=== PATIENT | female | born 1945 | race Caucasian/White ===

== ENCOUNTER → 2017-01-21 | Outpatient (CLI) | payer BC ==
[2017-01-21 14:35] LABS: ALT/SGPT 40 U/L (12-78); BLOOD UREA NITROGEN 14 mg/dl (7-18); BUN/CREATININE RATIO 23.1 (10-20); CALCIUM 9.2 mg/dl (8.5-10.1); CARBON DIOXIDE 28 mmol/L (21-32); CHLORIDE 102 mmol/L (98-107); CREATININE 0.62 mg/dl (0.60-1.20); GLUCOSE 131 mg/dl (70-99); SODIUM 138 mmol/L (136-145)
[2017-01-21 14:44] LABS: ESTIMATED AVERAGE GLUCOSE 123 mg/dl; HA1C FLAG Normal (Normal)
[2017-01-21 14:46] LABS: ALKALINE PHOSPHATASE 127 U/L (45-117); AST/SGOT 26 U/L (15-37); FERRITIN 27.4 ng/ml (8.0-388.0)
[2017-01-21 15:23] LABS: LYME DISEASE AB IGG NEG (NEG); LYME DISEASE AB IGM NEG (NEG)
== END | disposition home or self-care (01) ==
LOC: C.LAB 13:41
PROVIDERS: ATTEND Chiropractor
DX: M79.1 Myalgia (principal)

== ENCOUNTER → 2017-02-17 | Outpatient (CLI) | payer BC ==
[~2017-02-17] MED LIST: B-COTAB18 PO; CHOL20007 PO; HYDR-5688 PO; LEVO88TA3 PO; LVNIS40 SQ; MULT-506 PO; RASA1TAB PO; ULT50X PO; [UNRECOGNIZED DRUG - OTHER] PO
== END | disposition home or self-care (01) ==
LOC: C.LAB 11:34
PROVIDERS: ATTEND Chiropractor
DX: M79.1 Myalgia (principal)

== ENCOUNTER → 2017-05-05 | Day surgery (SDC) | payer OTHER ==
[2017-04-21 09:01] VITALS: Ht 163.8 cm; Wt 59.1 kg
[~2017-05-05] VITALS: Ht 163.8 cm; Wt 59.1 kg
[~2017-05-05] MED LIST changes: +500ML BSS 0.3ML EPI 1:1000PF IRRIG ONE; +ACETAMINOPHEN 325 MG TAB PO PRN; +AMVISC PLUS 0.8ML SYRINGE INT OCU ONE; +ATROPINE SULFATE 0.1 MG/ML 5ML SYR IV PRN; +BSS FLUSH ONE; +ENDOCOAT 0.85ML SYRINGE INT OCU ONE; +EpHEDrine SULFATE INJ 50 MG/ML AMP IV PRN; +EpINEphrine INJ 1MG/ML AMP 1 MG/ML AMP ONE; -HYDR-5688 PO; +LACTATED RINGER'S 1000ML 1,000 ML IV SCH; +LIDOCAINE 4% OP SOLN DROP CHARGE ONE; +LIDOCAINE 4% OP SOLN DROP CHARGE OPL SCH; +LIDOCAINE HCL 1% MPF 2 ML VIAL ONE; -LVNIS40 SQ; +MIDAZOLAM HCL 1 MG/ML 2ML VIAL ONE; +MIX: 4ML BSS 1ML EPI 1:1000 PF TOP ONE; +MOXIFLOXACIN OPH SOLN PER DROP CHARGE ONE; +NURSING VERBAL MED ORDER ONE; +PROPARACAINE 0.5% OP SOLN PER DROP CHARGE OPL SCH; +TOBRAMYCIN/DEXAMETHASONE OPH OINT PER APPLN CHARGE ONE; -ULT50X PO
[2017-05-05] MEDS: PHENYLEPHRINE HCL 2.5% OP SOLN PER DROP CHARGE OPL SCH ×3 (09:07→09:17)
[2017-05-05] MEDS: TROPICAMIDE 1% OP SOLN PER DROP CHARGE OPL SCH ×3 (09:08→09:18)
[2017-05-05] MEDS: CYCLOPENTOLATE HCL 1% OP SOLN PER DROP CHARGE OPL SCH ×3 (09:09→09:19)
[2017-05-05] MEDS: MOXIFLOXACIN OPH SOLN PER DROP CHARGE OPL SCH ×3 (09:10→09:20)
--- NOTE | 2017-05-05 09:24 | History & Physical Bridge - SC ---
H&P Re-Evaluation Bridge Note: I have examined the patient, reviewed the History & Physical and in the interval since the performance of the History & Physical I have noted the following changes of clinical significance: No changes noted
[2017-05-05] MEDS: POVIDONE-IODINE OP SOLN 30 ML BTL ONE ×2 (10:17→10:18)
--- NOTE | 2017-05-05 10:34 | [facility] Post Operative Brief Note ---
Immediate Operative Summary Operative Date May 05, 2017. Pre-Operative Diagnosis Left Eye Cataract Post-Operative Diagnosis same Procedure(s) Performed Left Cataract Phacoemulsification With Intraocular Lens Implant Surgeon Dr. Geeta Armenta Resource Management Planner Surgeon(s) 0 Estimated Blood Loss 0 Findings Consistent with Post-Op Diagnosis Specimens none Anesthesia Type MAC Complication(s) none Disposition Accompanied Pt To Recovery: no Disposition:
--- NOTE | 2017-05-05 10:36 | [facility] Operative Report ---
Operative Report Date of Service May 05, 2017. Operative Report DATE OF OPERATION: 05/05/17 PREOPERATIVE DIAGNOSIS: Senile nuclear cataract and astigmatism, left eye POSTOPERATIVE DIAGNOSIS: Senile nuclear cataract and astigmatism, left eye PROCEDURE PERFORMED: Phacoemulsification with toric intraocular lens implantation, left eye SURGEON: Dr. Rodo Armenta ANESTHESIA: Topical with 1% intracameral lidocaine and monitored anesthesia care COMPLICATIONS: None DESCRIPTION OF PROCEDURE: After positively identifying the patient both verbally and by wristband in the preoperative area, the left eye was marked as the operative eye. Using a Robomarker, the 9 degree axis was marked after placing a drop of proparacaine. The patient was then brought back to the operating room by the anesthesia and nursing staff where they were given a drop of tetracaine and betadine into the operative eye. They were then sterilely prepped and draped in the standard fashion typical for ophthalmic surgery. Steri-strips were placed along the upper eyelids to keep the lashes back, and a lid speculum was placed into the operative eye. At this point, a documented time out was performed with members of the ophthalmology, nursing, and anesthesia staffs all agreeing upon the correct patient, correct location for surgery, correct procedure, and correct type and power of intraocular lens to be implanted. The microscope was then swung into position. Then, a paracentesis wound was made using a sideport blade. Then, in sequence, 1% preservative-free lidocaine followed by Endocoat viscoelastic was injected into the anterior chamber. Next , the main incision was made with a keratome blade in triplanar fashion. A sharp cystotome was introduced into the eye and used to create a tear in the anterior capsule, which was directed into a continuous curvilinear capsulorrhexis using Utrata forceps. Hydrodissection was then performed with BSS on a flat-tip cannula. Next, the phacoemulsification handpiece was introduced into the eye and used to remove the nucleus in a [id number] fashion. This was done without complication and then the irrigation-aspiration handpiece was introduced into the eye and used to remove all remaining cortical and epinuclear material. Amvisc was then injected into the anterior chamber as well as into the capsular bag and using the lens injector system, a [id number] 16.5 D lens, serial number [id number], and expiration date 10/2021 was injected into the capsular bag and rotated into the correct position to correctly line up with the toric marking. Next, the irrigation-aspiration handpiece was used to remove all remaining Amvisc. BSS was used to hydrate the main wound, and then BSS was injected into the paracentesis site to reach physiologic pressure and then the main wound was checked and found to be watertight. The patient was given drops of Vigamox and tobradex ointment into the operative eye, and then the surrounding area was cleaned and dried. A clear plastic shield was placed over the eye and the patient was then sat up and taken from the operating room by the anesthesia staff having tolerated the procedure well and suffering no complications. DISPOSITION: The patient was returned to the recovery room in stable condition. I attest to the content of the Intraoperative Record and any orders documented therein. Any exceptions are noted below.
--- NOTE | 2017-05-05 10:37 | Discharge Instructions-SurgCtr ---
Discharge Instructions Date of Service May 05, 2017. Visit Reason for Visit: Cataract Left Eye Discharge Discharge Diagnosis / Problem: left cataract Discharge Goals Goal(s): Decrease discomfort, Improve function Activity Recommendations Activity Limitations: as noted below Anesthesia . Post Anesthesia Instructions: If you have had General Anesthesia or IV Sedation: * Do not drive today. * Resume driving when surgeon permits. * Do not make important decisions or sign legal documents today. * Call surgeon for: 1. Temperature elevations greater than 101 degrees F. 2. Uncontrollable pain. 3. Excessive bleeding. 4. Persistent nausea and vomiting. 5. Medication intolerance (nausea, vomiting or rash). * For nausea and vomiting use only clear liquids such as: tea, soda, bouillon until nausea subsides, then gradually increase diet as tolerated. * If you have any concerns or questions, call your surgeon's office. If physician is unavailable and it is an emergency, call 911 or go to the nearest emergency room. . Instructions / Follow-Up Instructions / Follow-Up ACTIVITY RECOMMENDATIONS: * Light activities. * You may walk outside, read, watch television. * You may notice redness on the white part of the eye and some blurry vision - this is normal. MEDICATIONS: Resume previous medications unless instructed otherwise by your surgeon. Start all eye drops at 12:30 pm today: * Eye drops (today): Prednisone - one drop in operative eye every 2 hours while awake Ofloxacin - one drop in operative eye every 2 hours while awake Prolensa - one drop in operative eye daily SPECIAL CARE INSTRUCTIONS: * Tape plastic shield over eye to sleep at night. Call your doctor at with any concerns or problems. FOLLOW UP VISIT: Follow-up with Dr Armenta at [facility] as scheduled. Diet Recommendations Home Diet: no limitations Procedures Procedures Performed: Left Cataract Phacoemulsification With Intraocular Lens Implant Pending Studies Studies pending at discharge: no Medical Emergencies . Who to Call and When: Medical Emergencies: If at any time you feel your situation is an emergency, please call 911 immediately. . Non-Emergent Contact Non-Emergency issues call your: Surgeon . . "Provider Documentation" section prepared by Rodo Armenta. .
[2017-05-05 10:38] VITALS: TEMP 36.8
[2017-05-05 10:55] VITALS: BP 122/81; PULSE 70; O2SAT 96
--- NOTE | 2017-05-05 10:58 | Anesthesia Progress Nt - [facility] ---
Anesthesia Post Op Note Date & Time May 05, 2017 at 10:58 Vital Signs Pain Intensity: 0 Vital Signs Past 12 Hours Date Time Temp Pulse Resp B/P (MAP) Pulse Ox O2 Delivery O2 Flow Rate FiO2 05/05/17 10:55 70 16 122/81 (95) 96 Room Air 05/05/17 10:38 36.8 62 12 129/81 (97) 98 Room Air 05/05/17 08:58 36.5 76 20 134/82 (99) 100 Room Air Notes Mental Status: alert / awake / arousable, participated in evaluation Pt Amnestic to Procedure: Yes Nausea / Vomiting: adequately controlled Pain: adequately controlled Airway Patency, RR, SpO2: stable & adequate BP & HR: stable & adequate Hydration State: stable & adequate Anesthetic Complications: no major complications apparent
== END | disposition home or self-care (01) ==
LOC: X.SURG 08:44
PROVIDERS: ATTEND Ophthalmology
DX: H25.12 Age-related nuclear cataract, left eye (principal); H52.202 Unspecified astigmatism, left eye; G20 Parkinson's disease; Z90.89 Acquired absence of other organs; Z90.710 Acquired absence of both cervix and uterus

== ENCOUNTER → 2017-06-02 | Outpatient (CLI) | payer OTHER ==
[~2017-06-02] MED LIST changes: -500ML BSS 0.3ML EPI 1:1000PF IRRIG ONE; -ACETAMINOPHEN 325 MG TAB PO PRN; -AMVISC PLUS 0.8ML SYRINGE INT OCU ONE; -ATROPINE SULFATE 0.1 MG/ML 5ML SYR IV PRN; -BSS FLUSH ONE; -ENDOCOAT 0.85ML SYRINGE INT OCU ONE; -EpHEDrine SULFATE INJ 50 MG/ML AMP IV PRN; -EpINEphrine INJ 1MG/ML AMP 1 MG/ML AMP ONE; -LACTATED RINGER'S 1000ML 1,000 ML IV SCH; -LIDOCAINE 4% OP SOLN DROP CHARGE ONE; -LIDOCAINE 4% OP SOLN DROP CHARGE OPL SCH; -LIDOCAINE HCL 1% MPF 2 ML VIAL ONE; -MIDAZOLAM HCL 1 MG/ML 2ML VIAL ONE; -MIX: 4ML BSS 1ML EPI 1:1000 PF TOP ONE; -MOXIFLOXACIN OPH SOLN PER DROP CHARGE ONE; -NURSING VERBAL MED ORDER ONE; -PROPARACAINE 0.5% OP SOLN PER DROP CHARGE OPL SCH; -TOBRAMYCIN/DEXAMETHASONE OPH OINT PER APPLN CHARGE ONE
[2017-06-03 06:48] LABS: HEMOGLOBIN A1C 5.9 % (4.5-5.6)
[2017-06-05 07:47] LABS: METHYLMALONIC ACID 93 NMOL/L (87-318)
== END | disposition home or self-care (01) ==
LOC: C.LAB 15:31
PROVIDERS: ATTEND Chiropractor
DX: M79.1 Myalgia (principal)

== ENCOUNTER → 2017-07-07 | Day surgery (SDC) | payer OTHER ==
[2017-05-14 09:19] VITALS: BMI 22.0
[2017-06-16 08:23] VITALS: Ht 162.6 cm; Wt 59.1 kg
[~2017-07-07] VITALS: Ht 162.6 cm; Wt 59.1 kg
[~2017-07-07] MED LIST changes: +500ML BSS 0.3ML EPI 1:1000PF IRRIG ONE; +ACETAMINOPHEN 325 MG TAB PO PRN; +AMVISC PLUS 0.8ML SYRINGE INT OCU ONE; +ATROPINE SULFATE 0.1 MG/ML 5ML SYR IV PRN; +BSS FLUSH ONE; +CYCLOPENTOLATE HCL 1% OP SOLN PER DROP CHARGE OPR SCH; +ENDOCOAT 0.85ML SYRINGE INT OCU ONE; +EpHEDrine SULFATE INJ 50 MG/ML AMP IV PRN; +EpINEphrine INJ 1MG/ML AMP 1 MG/ML AMP ONE; +LACTATED RINGER'S 1000ML 500 ML IV SCH; +LIDOCAINE 4% OP SOLN DROP CHARGE ONE; +LIDOCAINE 4% OP SOLN DROP CHARGE OPR SCH; +LIDOCAINE HCL 1% MPF 2 ML VIAL ONE; +MIDAZOLAM HCL 1 MG/ML 2ML VIAL ONE; +MIX: 4ML BSS 1ML EPI 1:1000 PF TOP ONE; +MOXIFLOXACIN OPH SOLN PER DROP CHARGE ONE; +MOXIFLOXACIN OPH SOLN PER DROP CHARGE OPR SCH; +PHENYLEPHRINE HCL 2.5% OP SOLN PER DROP CHARGE OPR SCH; +POVIDONE-IODINE OP SOLN 30 ML BTL ONE; +PROPARACAINE 0.5% OP SOLN PER DROP CHARGE OPR SCH; +TOBRAMYCIN/DEXAMETHASONE OPH OINT PER APPLN CHARGE ONE; +TROPICAMIDE 1% OP SOLN PER DROP CHARGE OPR SCH
[2017-07-07] MEDS: PHENYLEPHRINE HCL 2.5% OP SOLN PER DROP CHARGE OPR SCH ×3 (11:22→11:31)
[2017-07-07] MEDS: TROPICAMIDE 1% OP SOLN PER DROP CHARGE OPR SCH ×3 (11:23→11:33)
[2017-07-07] MEDS: CYCLOPENTOLATE HCL 1% OP SOLN PER DROP CHARGE OPR SCH ×3 (11:24→11:34)
[2017-07-07] MEDS: MOXIFLOXACIN OPH SOLN PER DROP CHARGE OPR SCH ×3 (11:25→11:38)
--- NOTE | 2017-07-07 12:52 | [facility] Post Operative Brief Note ---
Immediate Operative Summary Operative Date July 07, 2017. Pre-Operative Diagnosis Cataract right eye Post-Operative Diagnosis Same Procedure(s) Performed Right Cataract Phacoemulsification With Intraocular Lens Implant; Symfony Toric Lens Surgeon Dr. Armenta Computer Programming Supervisor Surgeon(s) None Estimated Blood Loss 0ml Findings Consistent with Post-Op Diagnosis Specimens None Anesthesia Type MAC Complication(s) none Disposition Accompanied Pt To Recover: no Disposition:
[2017-07-07 12:54] VITALS: TEMP 36.9
--- NOTE | 2017-07-07 12:54 | [facility] Operative Report ---
Operative Report Date of Service July 07, 2017. Operative Report DATE OF OPERATION: 07/07/17 PREOPERATIVE DIAGNOSIS: Senile nuclear cataract and astigmatism, right eye POSTOPERATIVE DIAGNOSIS: Senile nuclear cataract and astigmatism, right eye PROCEDURE PERFORMED: Phacoemulsification with toric intraocular lens implantation, right eye SURGEON: Dr. Rodo Armenta ANESTHESIA: Topical with 1% intracameral lidocaine and monitored anesthesia care COMPLICATIONS: None DESCRIPTION OF PROCEDURE: After positively identifying the patient both verbally and by wristband in the preoperative area, the right eye was marked as the operative eye. Using a Robomarker, the 157 degree axis was marked after placing a drop of proparacaine. The patient was then brought back to the operating room by the anesthesia and nursing staff where they were given a drop of tetracaine and betadine into the operative eye. They were then sterilely prepped and draped in the standard fashion typical for ophthalmic surgery. Steri-strips were placed along the upper eyelids to keep the lashes back, and a lid speculum was placed into the operative eye. At this point, a documented time out was performed with members of the ophthalmology, nursing, and anesthesia staffs all agreeing upon the correct patient, correct location for surgery, correct procedure, and correct type and power of intraocular lens to be implanted. The microscope was then swung into position. Then, a paracentesis wound was made using a sideport blade. Then, in sequence, 1% preservative-free lidocaine followed by Endocoat viscoelastic was injected into the anterior chamber. Next , the main incision was made with a keratome blade in triplanar fashion. A sharp cystotome was introduced into the eye and used to create a tear in the anterior capsule, which was directed into a continuous curvilinear capsulorrhexis using Utrata forceps. Hydrodissection was then performed with BSS on a flat-tip cannula. Next, the phacoemulsification handpiece was introduced into the eye and used to remove the nucleus in a [id number] fashion. This was done without complication and then the irrigation-aspiration handpiece was introduced into the eye and used to remove all remaining cortical and epinuclear material. Amvisc was then injected into the anterior chamber as well as into the capsular bag and using the lens injector system, a [id number] 15.0 D lens, serial number [id number], and expiration date 10/2021 was injected into the capsular bag and rotated into the correct position to correctly line up with the toric marking. Next, the irrigation-aspiration handpiece was used to remove all remaining Amvisc. BSS was used to hydrate the main wound, and then BSS was injected into the paracentesis site to reach physiologic pressure and then the main wound was checked and found to be watertight. The patient was given drops of Vigamox and tobradex ointment into the operative eye, and then the surrounding area was cleaned and dried. A clear plastic shield was placed over the eye and the patient was then sat up and taken from the operating room by the anesthesia staff having tolerated the procedure well and suffering no complications. DISPOSITION: The patient was returned to the recovery room in stable condition. I attest to the content of the Intraoperative Record and any orders documented therein. Any exceptions are noted below.
--- NOTE | 2017-07-07 12:55 | Discharge Instructions-SurgCtr ---
Discharge Instructions Date of Service July 07, 2017. Visit Reason for Visit: Right Cataract Discharge Discharge Diagnosis / Problem: right cataract Discharge Goals Goal(s): Decrease discomfort, Improve function Activity Recommendations Activity Limitations: as noted below Anesthesia . Post Anesthesia Instructions: If you have had General Anesthesia or IV Sedation: * Do not drive today. * Resume driving when surgeon permits. * Do not make important decisions or sign legal documents today. * Call surgeon for: 1. Temperature elevations greater than 101 degrees F. 2. Uncontrollable pain. 3. Excessive bleeding. 4. Persistent nausea and vomiting. 5. Medication intolerance (nausea, vomiting or rash). * For nausea and vomiting use only clear liquids such as: tea, soda, bouillon until nausea subsides, then gradually increase diet as tolerated. * If you have any concerns or questions, call your surgeon's office. If physician is unavailable and it is an emergency, call 911 or go to the nearest emergency room. . Instructions / Follow-Up Instructions / Follow-Up ACTIVITY RECOMMENDATIONS: * Light activities. * You may walk outside, read, watch television. * You may notice redness on the white part of the eye and some blurry vision - this is normal. MEDICATIONS: Resume previous medications unless instructed otherwise by your surgeon. Start all eye drops at 3 pm today: * Eye drops (today): Prednisone - one drop in operative eye every 2 hours while awake Ofloxacin - one drop in operative eye every 2 hours while awake Prolensa - one drop in operative eye daily SPECIAL CARE INSTRUCTIONS: * Tape plastic shield over eye to sleep at night. Call your doctor at with any concerns or problems. FOLLOW UP VISIT: Follow-up with Dr Armenta at [facility] as scheduled. Diet Recommendations Home Diet: no limitations Procedures Procedures Performed: Right Cataract Phacoemulsification With Intraocular Lens Implant; Symfony Toric Lens Pending Studies Studies pending at discharge: no Medical Emergencies . Who to Call and When: Medical Emergencies: If at any time you feel your situation is an emergency, please call 911 immediately. . Non-Emergent Contact Non-Emergency issues call your: Surgeon . . "Provider Documentation" section prepared by Rodo Armenta. .
[2017-07-07 13:12] VITALS: BP 116/76; PULSE 65; O2SAT 98
--- NOTE | 2017-07-07 13:20 | Anesthesia Progress Nt - [facility] ---
Anesthesia Post Op Note Date & Time July 07, 2017 at 13:20 Vital Signs Pain Intensity: 0 Vital Signs Past 12 Hours Date Time Temp Pulse Resp B/P (MAP) Pulse Ox O2 Delivery O2 Flow Rate FiO2 07/07/17 13:12 65 16 116/76 (89) 98 Room Air 07/07/17 12:54 36.9 64 16 124/78 (93) 99 Room Air 07/07/17 11:13 36.6 80 18 123/82 (96) 99 Room Air Notes Mental Status: alert / awake / arousable, participated in evaluation Pt Amnestic to Procedure: Yes Nausea / Vomiting: adequately controlled Pain: adequately controlled Airway Patency, RR, SpO2: stable & adequate BP & HR: stable & adequate Hydration State: stable & adequate Anesthetic Complications: no major complications apparent
== END | disposition home or self-care (01) ==
LOC: X.SURG 11:02
PROVIDERS: ATTEND Ophthalmology
DX: H25.11 Age-related nuclear cataract, right eye (principal); H52.201 Unspecified astigmatism, right eye; G20 Parkinson's disease; E03.9 Hypothyroidism, unspecified; E11.9 Type 2 diabetes mellitus without complications; Z82.49 Family history of ischemic heart disease and other diseases of the circulatory system

== ENCOUNTER → 2017-09-10 | Outpatient (CLI) | payer OTHER ==
[~2017-09-10] MED LIST changes: -500ML BSS 0.3ML EPI 1:1000PF IRRIG ONE; -ACETAMINOPHEN 325 MG TAB PO PRN; -AMVISC PLUS 0.8ML SYRINGE INT OCU ONE; -ATROPINE SULFATE 0.1 MG/ML 5ML SYR IV PRN; -BSS FLUSH ONE; -CYCLOPENTOLATE HCL 1% OP SOLN PER DROP CHARGE OPR SCH; -ENDOCOAT 0.85ML SYRINGE INT OCU ONE; -EpHEDrine SULFATE INJ 50 MG/ML AMP IV PRN; -EpINEphrine INJ 1MG/ML AMP 1 MG/ML AMP ONE; -LACTATED RINGER'S 1000ML 500 ML IV SCH; -LIDOCAINE 4% OP SOLN DROP CHARGE ONE; -LIDOCAINE 4% OP SOLN DROP CHARGE OPR SCH; -LIDOCAINE HCL 1% MPF 2 ML VIAL ONE; -MIDAZOLAM HCL 1 MG/ML 2ML VIAL ONE; -MIX: 4ML BSS 1ML EPI 1:1000 PF TOP ONE; -MOXIFLOXACIN OPH SOLN PER DROP CHARGE ONE; -MOXIFLOXACIN OPH SOLN PER DROP CHARGE OPR SCH; -PHENYLEPHRINE HCL 2.5% OP SOLN PER DROP CHARGE OPR SCH; -POVIDONE-IODINE OP SOLN 30 ML BTL ONE; -PROPARACAINE 0.5% OP SOLN PER DROP CHARGE OPR SCH; -TOBRAMYCIN/DEXAMETHASONE OPH OINT PER APPLN CHARGE ONE; -TROPICAMIDE 1% OP SOLN PER DROP CHARGE OPR SCH
[2017-09-10 12:29] LABS: HEMOGLOBIN A1C 5.8 % (4.5-5.6)
[2017-09-10 13:08] LABS: BLOOD UREA NITROGEN 19 mg/dl (7-18); CALCIUM 8.8 mg/dl (8.5-10.1); CARBON DIOXIDE 28 mmol/L (21-32); CHOLESTEROL 184 mg/dl (0-200); CREATININE 0.61 mg/dl (0.60-1.20); GLUCOSE 79 mg/dl (70-99); LDL CHOLESTEROL CALCULATED 107 mg/dl; POTASSIUM 3.8 mmol/L (3.5-5.1); SODIUM 140 mmol/L (136-145)
== END | disposition home or self-care (01) ==
LOC: C.LAB 10:24
PROVIDERS: ATTEND Family Medicine
DX: R73.03 Prediabetes (principal); G20 Parkinson's disease; E03.9 Hypothyroidism, unspecified; Z13.220 Encounter for screening for lipoid disorders

== ENCOUNTER 2017-10-06 15:59 | Inpatient (IN) | payer OTHER ==
[~2017-10-06] VITALS: Ht 162.6 cm; Wt 59.0 kg
--- NOTE | 2017-10-06 16:50 | DIAGNOSTIC IMAGING REPORT ---
R HIP UNILATERAL 2 VIEWS CLINICAL HISTORY: R hip pain pain COMPARISON: None. DISCUSSION: Suggestion of potential slight double density of the subcapital region of the right femoral head and neck. No well-defined cortical break. No evidence for acetabular protrusion. There is no evidence for soft tissue swelling. IMPRESSION: Possible subacute cortical fracture versus overlap artifact. CT study of the right hip is suggested as follow-up. The above report was generated using voice recognition software. It may contain grammatical, syntax or spelling errors. Electronically signed by: Sameer Florez M.D. 10/06/2017 4:48 PM Dictated Date/Time: 10/06/2017 4:48 PM
--- NOTE | 2017-10-06 17:49 | DIAGNOSTIC IMAGING REPORT ---
CT OF THE RIGHT HIP WITHOUT CONTRAST CLINICAL HISTORY: Right hip pain following fall. Possible right hip fracture. COMPARISON STUDY: Right hip radiographs performed earlier today. TECHNIQUE: Axial images of the right hip were obtained without IV contrast. Sagittal and coronal reconstructions were viewed. FINDINGS: Note is made of an acute impacted minimally displaced subcapital right femoral fracture. No additional fractures are identified on this examination. Alignment of the right hip is anatomic. No suspicious osseous lesion is present. Visualized portions of the right hemipelvis are unremarkable. IMPRESSION: Acute impacted minimally displaced subcapital right femoral neck fracture. Electronically signed by: Asaf Carolina M.D. 10/06/2017 5:48 PM Dictated Date/Time: 10/06/2017 5:42 PM
[2017-10-06] MEDS ORDERED: IBUPROFEN 600 MG TAB PO STA (18:00)
--- NOTE | 2017-10-06 18:39 | EMERGENCY ROOM VISIT NOTE ---
ED Visit Note First contact with patient: 17:57 I have personally seen and evaluated the patient with the physician information services assistant. I agree with the diagnostic/management decisions and have personally been involved in these decisions and agree with the diagnosis.
--- NOTE | 2017-10-06 19:21 | DIAGNOSTIC IMAGING REPORT ---
CROSSTABLE LATERAL RADIOGRAPH OF THE RIGHT HIP CLINICAL HISTORY: Fracture. COMPARISON: Right hip radiographs and CT of the right hip performed earlier today. FINDINGS: Crosstable lateral view demonstrates an impacted subcapital right femoral neck fracture. No additional fractures are identified on this lateral projection. IMPRESSION: Acute impacted subcapital right femoral neck fracture. Electronically signed by: Asaf Carolina M.D. 10/06/2017 7:20 PM Dictated Date/Time: 10/06/2017 7:18 PM
--- NOTE | 2017-10-06 19:22 | DIAGNOSTIC IMAGING REPORT ---
CHEST ONE VIEW PORTABLE CLINICAL HISTORY: PRE-OP COMPARISON STUDY: No previous studies for comparison. FINDINGS: Lung volumes are normal. No pneumothorax or pleural effusion is noted. There is no consolidation or evidence for pulmonary edema. Borderline cardiomegaly is noted. A metallic density projecting over the neck is likely on the patient. IMPRESSION: No acute cardiopulmonary findings. Electronically signed by: Asaf Carolina M.D. 10/06/2017 7:21 PM Dictated Date/Time: 10/06/2017 7:20 PM
[2017-10-06 20:01] LABS: BASO % 0.2 %; BASO ABS # 0.02 K/uL (0-0.2); EOS % 0.4 %; EOS ABS # 0.04 K/uL (0-0.5); HEMATOCRIT 38.2 % (37-47); IG# 0.01 K/uL (0.00-0.02); LYMPH % 15.9 %; LYMPH ABS # 1.77 K/uL (1.2-3.4); MEAN CELL VOLUME 84.5 fL (80-100); MEAN CORPUSCULAR HEMOGLOBIN 28.8 pg (25-34); MEAN PLATELET VOLUME 9.9 fL (7.4-10.4); MONO % 6.6 %; MONO ABS # 0.73 K/uL (0.11-0.59); NEUT % 76.8 %; NEUT ABS # 8.56 K/uL (1.4-6.5); PLATELET COUNT 243 K/uL (130-400); RED CELL DISTRIBUTION WIDTH CV 13.1 % (11.5-14.5); RED CELL DISTRIBUTION WIDTH SD 40.3 fL (36.4-46.3); WHITE BLOOD COUNT 11.13 K/uL (4.8-10.8)
[2017-10-06] MEDS ORDERED: KETOROLAC TROMETHAMINE 15 MG/ML VIAL IV. PRN (20:30)
[2017-10-06 20:32] LABS: BLOOD UREA NITROGEN 17 mg/dl (7-18); CALCIUM 9.3 mg/dl (8.5-10.1); CARBON DIOXIDE 27 mmol/L (21-32); CREATININE 0.57 mg/dl (0.60-1.20); GLUCOSE 89 mg/dl (70-99); SODIUM 139 mmol/L (136-145)
[2017-10-06] MEDS ORDERED: KETOROLAC TROMETHAMINE 15 MG/ML VIAL IV. STA (20:41)
[2017-10-06] MEDS ORDERED: ACETAMINOPHEN 325 MG TAB PO PRN (20:45)
[2017-10-06] MEDS ORDERED: NALOXONE HCL 0.4 MG/1 ML VIAL/CARP IV PRN (20:45)
[2017-10-06] MEDS ORDERED: MoRPHine SULFATE 2 MG/ML CARP IV PRN (20:45)
[2017-10-06] MEDS ORDERED: POLYETHYLENE (MIRALAX) 17 GM PACK PO PRN (20:45)
[2017-10-06] MEDS ORDERED: MoRPHine SULFATE 4 MG/ML 1 ML CARP\\VIAL IV PRN (20:45)
[2017-10-06] MEDS ORDERED: SOD PHOSPHATE/SOD BIPHOSPHATE ENEMA 132 ML BTL PR PRN (20:45)
[2017-10-06] MEDS ORDERED: LORAZEPAM 2 MG/ML 1 ML VIAL IV PRN (20:45)
[2017-10-06] MEDS ORDERED: PROCHLORPERAZINE INJ 5 MG in SYRINGE 4 ML IV PRN (20:45)
[2017-10-06] MEDS ORDERED: BISACODYL 10 MG SUPP PR PRN (20:45)
[2017-10-06] MEDS ORDERED: OXYCODONE HCL IR 5 MG TAB (IMMEDIATE RELEASE) PO PRN ×2 (20:45)
[2017-10-06] MEDS ORDERED: MAGNESIUM HYDROXIDE SUSP 30 ML UDC PO PRN (20:45)
[2017-10-06 21:23] LABS: POTASSIUM 3.6 mmol/L (3.5-5.1)
--- NOTE | 2017-10-06 22:18 | HISTORY & PHYSICAL EXAMINATION ---
DATE OF ADMISSION: 10/06/2017 PRIMARY CARE PHYSICIAN: Dr. Weldon. CHIEF COMPLAINT: Right hip pain. HISTORY OF PRESENT ILLNESS: History obtained from the patient and records. Medical history significant for hypothyroidism, Parkinson disease. Patient was playing pickleball with some friends at the [facility] today when she fell down on her right side later noting achy right upper leg pain. No chest pain, no shortness of breath. Denies head trauma. Patient brought to the Emergency Room. MEDICAL HISTORY: As above. SURGERIES: She has had cataract surgery, knee surgery, total abdominal hysterectomy, tube removal, and tonsillectomy. HOME MEDICATIONS: Include levothyroxine. ALLERGIES: No known drug allergies. FAMILY HISTORY: There is a family history of breast cancer, rheumatic heart disease, stroke. PERSONAL SOCIAL HISTORY: Nonsmoker. 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 REVIEW OF SYSTEMS: As per HPI, all 10 systems reviewed, all other ROS negative. FUNCTIONAL HISTORY: Still able to do housework, plays pickleball without limitation. PHYSICAL EXAMINATION: VITAL SIGNS: Blood pressure was noted to be 152/81, pulse rate 80 RR 18 T 37 O2 sats 94 on room air. GENERAL: Noted to be slightly uncomfortable, no respiratory distress. SKIN: Normal color, warm. HEENT: [place] palpebral conjunctivae. No ptosis. Dry mucosa. NECK: Supple, nontender. CHEST: Decreased breath sounds. No tenderness. HEART: Regular rate and rhythm, no murmur. ABDOMEN: Soft, nontender. EXTREMITIES: Tenderness, right upper leg. No lower LE swelling. NEUROLOGIC: Coherent. No gross focality except for rest tremors on the right upper extremity which is chronic. LABS: Hemoglobin was noted to be 13, hematocrit 38.2, white cell count 11.13, platelets 243. Sodium 139, potassium is pending, chloride 106, CO2 27, BUN 17, creatinine 0.5, glucose was noted to be 89. Chest x-ray showed no acute cardiopulmonary findings. Lower extremity CT showed acute impacted nondisplaced sub capital right femoral fracture. EKG as per my interpretation, rate 75, NSR, LAE, some T-wave flattening in lateral leads. ASSESSMENT: 1. Acute right femoral fracture secondary to mechanical fall 2. Situational hypertension 3. Hypothyroidism, euthyroid as of recent outpatient TSH from last month 4. Parkinson's dse, baseline RUE tremors PLAN: [facility] Othopedics consult. RE R femoral fx (ER provider already in touch with Dr. Thompson who is contemplating surgery in the morning.) No medical contraindication to contemplated Orthopedics procedure. DVT prophylaxis, SCDs for now. Recommend pharmacologic anticoagulation with Lovenox 40 mg subcutaneous daily once bleeding risk is deemed to be minimal and negligible pending Orthopedics eval. Full code. MTDD
[2017-10-06 22:30] VITALS: BP 121/75; PULSE 81; TEMP 36.9; BMI 22.0
--- NOTE | 2017-10-06 22:45 | EMERGENCY ROOM VISIT NOTE ---
History First contact with patient: 16:16 Chief Complaint: FALL Stated Complaint: HIP PAIN FROM FALL History of Present Illness The patient is a 72 year old female, history of Parkinson's disease, who presents to the Emergency Room with complaints of right hip pain after a fall. The patient reports that she tripped and fell onto her right side. She complains of right hip pain that slightly extends into the right inner thigh. She denies any other injuries, including head injury, neck pain, back pain, chest pain or other extremity injuries. She was able to get up and walk with difficulty, and rates her discomfort an 8 out of 10. She denies any paresthesias or numbness of the right lower extremity. Review of Systems HEENT: Denies dizziness, visual problems, hearing loss, tinnitus. Denies difficulty swallowing or oral lesions. PULMONARY: Denies cough, shortness of breath, sputum production or hemoptysis. CARDIOVASCULAR: Denies chest pain, palpitations, dyspnea on exertion, orthopnea or peripheral edema. GASTROINTESTINAL: Denies diarrhea, constipation, nausea, vomiting, or abdominal pain. GENITOURINARY: Denies dysuria, frequency, urgency or nocturia. NEUROLOGIC: Denies history of epilepsy, CVA, TIA or chronic headaches. Patient does have a history of Parkinson's disease. MUSCULOSKELETAL: Denies history of joint tenderness/swelling. SKIN: Denies rashes or lesions. PSYCHIATRIC: Denies history of depression or mental illness. ENDOCRINE: Denies history of diabetes or thyroid disorders. Past Medical/Surgical History Medical Problems: (1) Femoral fracture Medical Problems: (1) Chondromalacia Patellae (2) Femoral fracture (3) Hypothyroidism, Unspecified (4) Metabolic Syndrome (5) Parkinson's Disease (6) Type 2 Diabetes Mellitus Without Complications (7) Vitamin B12 Deficiency Anemia, Unspecified Surgical Problems: (1) History of hysterectomy Family History FH: breast cancer FH: heart disease Social History Smoking Status: Never Smoker Alcohol Use: occasionally Marital Status: Occupation Status: retired Current/Historical Medications Scheduled Levothyroxine Sodium (Levothyroxine Sodium), 88 MCG PO QAM Physical Exam Vital Signs Date Time Temp Pulse Resp B/P (MAP) Pulse Ox O2 Delivery O2 Flow Rate FiO2 10/06/17 20:30 62 14 143/72 95 Room Air 10/06/17 18:36 77 14 151/90 95 Room Air 10/06/17 16:07 36.7 68 16 151/81 94 Room Air Physical Exam CONSTITUTIONAL: Healthy and well nourished. Alert and oriented X 3 with positive affect. Patient appears in mild to moderate discomfort. HEENT: Normocephalic, atraumatic. Pupils equal, round and reactive. NECK: Full active range of motion without discomfort. RESPIRATORY: Clear to auscultation bilaterally with no wheezing, crackles, rhonchi or stridor. CARDIOVASCULAR: Regular rate and rhythm with no murmurs, rubs or gallops. MUSCULOSKELETAL: Examination shows no focal lateral tenderness to palpation. She has mild discomfort with internal and external rotation. Pedal pulses are intact. Otherwise the patient has no tenderness to palpation through the lower lumbar spine or right posterior pelvic region. Pedal pulses are intact. INTEGUMENTARY: No rash or other significant dermatologic conditions noted. NEUROLOGIC: Right foot and toes are sensory intact. Medical Decision & Procedures ER Provider Diagnostic Interpretation: My interpretation of right hip x-rays is suggestive of a cortical fracture of the medial subcapital femoral neck. Radiologist report is as follows: CHEST ONE VIEW PORTABLE CLINICAL HISTORY: PRE-OP COMPARISON STUDY: No previous studies for comparison. FINDINGS: Lung volumes are normal. No pneumothorax or pleural effusion is noted. There is no consolidation or evidence for pulmonary edema. Borderline cardiomegaly is noted. A metallic density projecting over the neck is likely on the patient. IMPRESSION: No acute cardiopulmonary findings. Noncontrast CT of the right hip confirms a subcapital fracture that is impacted and minimally displaced. Radiologist report is as follows: CT OF THE RIGHT HIP WITHOUT CONTRAST CLINICAL HISTORY: Right hip pain following fall. Possible right hip fracture. COMPARISON STUDY: Right hip radiographs performed earlier today. TECHNIQUE: Axial images of the right hip were obtained without IV contrast. Sagittal and coronal reconstructions were viewed. FINDINGS: Note is made of an acute impacted minimally displaced subcapital right femoral fracture. No additional fractures are identified on this examination. Alignment of the right hip is anatomic. No suspicious osseous lesion is present. Visualized portions of the right hemipelvis are unremarkable. IMPRESSION: Acute impacted minimally displaced subcapital right femoral neck fracture. My interpretation of a preoperative ECG shows a normal sinus rhythm of 76 bpm with T-wave inversion in anteroseptal leads, otherwise no ST elevation noted. When compared with the prior ECG dated 08/06/05, no acute changes are noted. My interpretation of a portable chest x-ray does not show any consolidations, pneumothorax or cardiac prominence. Radiologist report is as follows: CHEST ONE VIEW PORTABLE CLINICAL HISTORY: PRE-OP COMPARISON STUDY: No previous studies for comparison. FINDINGS: Lung volumes are normal. No pneumothorax or pleural effusion is noted. There is no consolidation or evidence for pulmonary edema. Borderline cardiomegaly is noted. A metallic density projecting over the neck is likely on the patient. IMPRESSION: No acute cardiopulmonary findings. Laboratory Results 10/06/17 19:45 Red Blood Count 4.52, Mean Corpuscular Volume 84.5, Mean Corpuscular Hemoglobin 28.8, Mean Corpuscular Hemoglobin Concent 34.0, Mean Platelet Volume 9.9, Neutrophils (%) (Auto) 76.8, Lymphocytes (%) (Auto) 15.9, Monocytes (%) (Auto) 6.6, Eosinophils (%) (Auto) 0.4, Basophils (%) (Auto) 0.2, Neutrophils # (Auto) 8.56, Lymphocytes # (Auto) 1.77, Monocytes # (Auto) 0.73, Eosinophils # (Auto) 0.04, Basophils # (Auto) 0.02 10/06/17 19:45 Test 10/06/17 19:45 White Blood Count 11.13 K/uL (4.8-10.8) Red Blood Count 4.52 M/uL (4.2-5.4) Hemoglobin 13.0 g/dL (12.0-16.0) Hematocrit 38.2 % (37-47) Mean Corpuscular Volume 84.5 fL (80-100) Mean Corpuscular Hemoglobin 28.8 pg (25-34) Mean Corpuscular Hemoglobin Concent 34.0 g/dl (32-36) Platelet Count 243 K/uL (130-400) Mean Platelet Volume 9.9 fL (7.4-10.4) Neutrophils (%) (Auto) 76.8 % Lymphocytes (%) (Auto) 15.9 % Monocytes (%) (Auto) 6.6 % Eosinophils (%) (Auto) 0.4 % Basophils (%) (Auto) 0.2 % Neutrophils # (Auto) 8.56 K/uL (1.4-6.5) Lymphocytes # (Auto) 1.77 K/uL (1.2-3.4) Monocytes # (Auto) 0.73 K/uL (0.11-0.59) Eosinophils # (Auto) 0.04 K/uL (0-0.5) Basophils # (Auto) 0.02 K/uL (0-0.2) RDW Standard Deviation 40.3 fL (36.4-46.3) RDW Coefficient of Variation 13.1 % (11.5-14.5) Immature Granulocyte % (Auto) 0.1 % Immature Granulocyte # (Auto) 0.01 K/uL (0.00-0.02) Anion Gap 7.0 mmol/L (3-11) Estimated GFR () 108.9 Estimated GFR (Non- 93.9 BUN/Creatinine Ratio 30.0 (10-20) Calcium Level 9.3 mg/dl (8.5-10.1) Preoperative labs were reviewed, showing a slightly elevated white count, likely stress-induced. ED Course Patient history and physical exam were performed. Nurse's notes were reviewed. Vital signs were reviewed and normal. The patient initially refused any analgesics. X-rays of the right hip were suggestive of a subcapital femoral neck cortical fracture. I elected to order a CT of the hip which showed an impacted and minimally displaced subcapital femoral neck fracture. At this point, I recommended IV access in order to provide additional pain relief. IV access was established, and labs were drawn. The patient was administered IV morphine and Zofran. Labs were reviewed, showing a mild leukocytosis that is likely stressed induced. Preoperative ECG and portable chest x-ray were normal. The case was discussed with Dr. Mckeon, ED attending physician, who evaluated the patient and recommended orthopedic consultation. I then discussed the case with Dr. Thompson, [facility] who will come to the emergency department and evaluate the patient. He has recommended hospitalist admission and presurgical clearance. The case was then discussed with the [facility] hospitalist group. Please see their dictations for further surgical treatment and details of admission. Medical Decision [place] Drug Monitoring Program Search Results: patient reviewed within database, no issues identified Medication Reconcilliation Current Medication List: was personally reviewed by me Blood Pressure Screening Patient's blood pressure: Normal blood pressure Impression Primary Impression: Subcapital fracture of neck of right femur Additional Impressions: Fall from slip, trip, or stumble Parkinsons disease Departure Information Referrals Winter Weldon D.O. (PCP) Patient Instructions My [facility] Problem Qualifiers Primary Impression: Subcapital fracture of neck of right femur Encounter type: initial encounter Fracture type: closed Qualified Codes: S72.011A - Unspecified intracapsular fracture of right femur, initial encounter for closed fracture Additional Impressions: Fall from slip, trip, or stumble Encounter type: initial encounter Qualified Codes: W01.0XXA - Fall on same level from slipping, tripping and stumbling without subsequent striking against object, initial encounter
--- NOTE | 2017-10-06 22:50 | ORTHOPEDIC CONSULTATION ---
DATE OF CONSULTATION: 10/06/2017 CHIEF COMPLAINT: Right hip pain. HISTORY OF PRESENT ILLNESS: Yamilex is 72-year-old female. She fell playing pickleball landing on her right hip. She had significant pain and was unable to ambulate independently afterwards, although she was able to ambulate with assistance. There is no prior history of right hip fracture and she denies other areas of injury. There is no numbness or tingling. PAST MEDICAL HISTORY: Parkinson's disease manifesting as tremor. She is not on any medications for that. She also has hypothyroidism. PAST SURGICAL HISTORY: She had a knee arthroscopy. MEDICATIONS: She takes thyroxine. ALLERGIES: None. REVIEW OF SYSTEMS: She has no issues with bleeding, blood clots, infections, high blood pressure, cancer or blood clots. No diabetes. PHYSICAL EXAMINATION: EXTREMITIES: The right hip is not tender or deformed. She cannot lift her right leg. She can freely move her upper extremities and her left lower extremity. She has 1+ posterior tibial pulse with 5/5 ankle and toe plantar flexion and dorsiflexion strength with normal sensation in the right leg. There is no swelling, bruising or crepitation in the right lower extremity. IMAGING: X-rays and CT scan are reviewed demonstrating a nondisplaced valgus impacted femoral neck fracture. There appears to be good alignment, although the lateral views are slightly suboptimal. There is no hip arthritis. IMPRESSION: 1. Hypothyroidism. 2. Parkinson disease. 3. A nondisplaced right hip fracture. PLAN: Findings are discussed. Options are reviewed. She is educated about what is going on. Without surgery, there is a chance for displacement which could require a hemiarthroplasty. She would also need to be nonweightbearing. I have recommended operative intervention and she agrees to proceed. She is educated about the operation. We talked about the risks, benefits, recovery and rehabilitation. The plan would be for a percutaneous pinning tomorrow in the operating room. I also discussed with them the possibility of hemiarthroplasty should the fracture alignment not be acceptable. She will be admitted to the hospital by the medicine service. She will be n.p.o. after midnight and I have booked her into the operating room.
[2017-10-06] MEDS: DOCUSATE SODIUM/SENNA 50/8.6MG TAB PO SCH (23:21)
[2017-10-06] MEDS: D5NSS + 20MEQ KCL 1,000 ML IV SCH (23:21)
[2017-10-07] VITALS (14 sets, daily range): BP systolic 104–126; BP diastolic 64–75; PULSE 63–91; TEMP 36.4–37.2; O2SAT 91–100; Ht 162.6 cm; Wt 59.0 kg
[2017-10-07] MEDS ORDERED: D5W AND NSS 1,000 ML IV SCH
[2017-10-07] MEDS ORDERED: CEFAZOLIN 2000MG IV PUSH 15 ML IV SCH (06:00)
[2017-10-07] MEDS: LEVOTHYROXINE 88 MCG TAB PO SCH (06:21)
[2017-10-07] MEDS ORDERED: BUPIVACAINE 0.5 % 5 MG/1 ML PF 10ML VIAL ONE ×3 (06:49→11:53)
--- NOTE | 2017-10-07 08:06 | PROGRESS NOTE ---
DATE: 10/06/2017 White count is 11, likely secondary to stress. Her CBC otherwise is acceptable. Her PRP is noted. Chest x-ray shows no acute disease and her EKG shows normal sinus rhythm.
--- NOTE | 2017-10-07 08:09 | Progress Note ---
Progress Note Date of Service Oct 07, 2017. Progress Note 72 yo female s/p mechanical fall playing pickle ball with right femoral fracture. PMH significant for hypothyroidism on synthroid and parkinsons. Only symptom from parkinsons is a right sided tremor at this time and patient does not take any associated medications. No history of complications with anesthesia. Normal appearing airway and appropriate labs for scheduled surgery. Discussed anesthetic options with the patient, who is very interested in receiving a spinal. Anesthesia consent signed and all questions answered. Pt NPO since midnight, but ok to receive PO pain meds with a sip of water as needed. Ingrid Lopez MD, PhD Anesthesiology
[2017-10-07] MEDS: ACETAMINOPHEN 325 MG TAB PO PRN (10:17)
[2017-10-07] MEDS ORDERED: MoRPHine SULFATE PF 1 MG/ML 10 ML AMP/VIAL ONE (11:16)
[2017-10-07] MEDS ORDERED: MIDAZOLAM HCL 1 MG/ML 2ML VIAL ONE (11:16)
[2017-10-07] MEDS ORDERED: FENTANYL CITRATE INJ 50 MCG/1 ML 2 ML VIAL ONE (11:43)
[2017-10-07] MEDS ORDERED: LIDOCAINE HCL 1% 20 ML VIAL ONE (11:53)
[2017-10-07] MEDS ORDERED: PROPOFOL IV EMULSION 10 MG/ML 20 ML VIAL ONE (12:26)
[2017-10-07] MEDS ORDERED: PHENYLEPHRINE 100MCG/ML 5ML SYR ONE (12:26)
[2017-10-07] MEDS ORDERED: ONDANSETRON INJ 2 MG/ML 2 ML VIAL ONE (12:26)
[2017-10-07] MEDS ORDERED: EpHEDrine SULFATE 50MG/5ML SYR ONE (12:26)
[2017-10-07] MEDS ORDERED: EpHEDrine SULFATE INJ 50 MG/ML AMP IV PRN ×2 (12:45→14:30)
[2017-10-07] MEDS ORDERED: FENTANYL CITRATE INJ 50 MCG/1 ML 2 ML VIAL IV PRN (12:45)
[2017-10-07] MEDS ORDERED: PROMETHAZINE HCL INJ 6.25 MG in SODIUM CHLORIDE 0.9% 50ML 50 ML IV PRN (12:45)
[2017-10-07] MEDS ORDERED: ONDANSETRON INJ 2 MG/ML 2 ML VIAL IV PRN ×2 (12:45→14:30)
[2017-10-07] MEDS ORDERED: ATROPINE SULFATE 0.1 MG/ML 5ML SYR IV PRN (12:45)
--- NOTE | 2017-10-07 12:52 | [facility] Operative Report ---
Operative Report Operative Date Oct 07, 2017. Pre-Operative Diagnosis Nondisplaced right hip fracture. Post-Operative Diagnosis Same Procedure(s) Performed Right Hip Percutaneous Screws Surgeon Dr. Khris Thompson Furniture Painter Surgeon(s) Kiera Genao PA-C Estimated Blood Loss 10ML Findings Valgus impacted nondisplaced subcapital fracture of the right hip Specimens None Drains None Anesthesia Type Spinal MAC Complication(s) none Disposition no Indications Patient's 72-year-old female status post fall with a valgus impacted slightly posteriorly angulated hip fracture. She is taken to surgery for percutaneous pinning Description of Procedure Informed consent obtained. Patient identified. She identified the operative site as the right hip. I marked with my initials. A preop surgical timeout was performed. Preop dose of IV antibiotics given. She was positioned supine on the fracture table. Her left leg was placed into the well leg kenny at 80 flexion and comfortable abduction and external rotation. Palpable pedal pulses were confirmed. A well-padded perineal post was utilized she was then placed into balance suspension traction with a gentle manual traction distally on the right leg which was slightly internally rotated. The torso secured to the table. Fluoroscopic image confirmed a slightly apex anterior angulated fracture very minimal in nature and acceptable. Valgus impacted on the AP so essentially nondisplaced. Routine prep and drape was performed. DVT prophylaxis SCDs intraoperatively. Postoperatively mechanical devices early mobility and chemoprophylaxis such as Lovenox. Fluoroscopic guidance is utilized to localize the area for the incision. A 4 cm incision was made over the lateral mid thigh. Electrocautery and blunt dissection was utilized down to the shaft of the femur. Fluoroscopic guidance was utilized to introduce a guidepin at the inferior portion of the femoral neck centrally located on the lateral view and adjusted 2. 2 more successive guidewire were inserted 1 central on the AP and posterior on the lateral and the third 1 anterosuperior. 7.3 cannulated screws short thread length were then inserted using power. The drill bit was the wrong size. The screws were carefully power drill through the cortex and manually tightened. Measurements were obtained and good bite was obtained. Confirmative AP and lateral images confirmed demonstrated reduction and alignment of the fracture positioning of the hardware with the threads across the fracture site. The wound was irrigated with sterile saline and closed with #1 Vicryl for the iliotibial band. 0 Vicryl on the subcutaneous fat layer of 2-0 Vicryl and russell on the skin. 1% lidocaine and 0.5% Marcaine both without epinephrine were injected into the skin and subcutaneous tissues. A soft sterile dressing was applied. She was awakened from anesthesia and taken off of the fracture table in stable condition. There were no specimens or complications counts were correct at the end of the case. Blood loss was approximately 10 cc. At the conclusion the operation I spoke the patient's and informed of my findings detailed postoperative instructions were given. Hardware inserted with the Synthes 7.3 cannulated screws length of 90 and 80 mm 2. She will be able to weight-bear as tolerated and will have PT and OT. Walker. I attest to the content of the Intraoperative Record and any orders documented therein. Any exceptions are noted below.
--- NOTE | 2017-10-07 13:01 | DIAGNOSTIC IMAGING REPORT ---
INTRAOPERATIVE FLUOROSCOPIC IMAGES OF THE RIGHT HIP CLINICAL HISTORY: Percutaneous screws. COMPARISON STUDY: Right hip radiographs and CT of the right hip October 06, 2017. FLUOROSCOPY TIME: 53 seconds. FINDINGS: 3 intraoperative fluoroscopic images demonstrate screw fixation of the impacted subcapital fracture of the right femur. Hardware is intact. There are no unexpected radiopaque foreign bodies. Alignment appears near anatomic. IMPRESSION: Expected findings following internal fixation of the subcapital right femoral neck fracture. Electronically signed by: Asaf Carolina M.D. 10/07/2017 1:00 PM Dictated Date/Time: 10/07/2017 12:58 PM
--- NOTE | 2017-10-07 13:11 | [facility] Operative Report ---
Operative Report Operative Date Oct 07, 2017. Pre-Operative Diagnosis Nondisplaced right hip fracture. Post-Operative Diagnosis Same Procedure(s) Performed Right Hip Percutaneous Screws Surgeon Dr. Khris Thompson Acrylic Fabricator Surgeon(s) Kiera Genao PA-C Estimated Blood Loss 10ML Findings Valgus impacted nondisplaced subcapital fracture of the right hip Specimens None Drains None Anesthesia Type Spinal MAC Complication(s) none Disposition no Indications Patient is a 72 year old female, s/p fall onto her right hip yesterday. She had immediate pain in her right hip. She was brought to the emergency room, x- rays were taken and she was found to have a nondisplaced impacted right femoral neck fracture. She was admitted to the hospital and seen and evaluated Dr. Thompson. Surgical intervention was recommended. She agreed to proceed with surgery. Risks and complications were discussed and informed consent was obtained. Description of Procedure Patient was taken to the operating room, given spinal anesthesia with IV sedation. She was given 2 g of IV Ancef for surgical prophylaxis. Timeout was performed. She was prepped and draped in routine sterile fashion. I was present during the entire case, and assisted with positioning, exposure, implantation of hardware, closure and dressings. Please see Dr. Thompson's operative report for further detail. Patient was awakened and transferred to the recovery room in stable condition. I attest to the content of the Intraoperative Record and any orders documented therein. Any exceptions are noted below.
--- NOTE | 2017-10-07 13:27 | Anesthesiology Progress Note ---
Anesthesia Post Op Note Date & Time Oct 07, 2017 at 13:27 Vital Signs Pain Intensity: 0 Vital Signs Past 12 Hours Date Time Temp Pulse Resp B/P (MAP) Pulse Ox O2 Delivery O2 Flow Rate FiO2 10/07/17 13:20 67 16 109/45 97 Nasal Cannula 2 10/07/17 13:10 66 16 117/58 100 Oxymask 5 10/07/17 13:01 36.6 73 16 107/63 97 Oxymask 10 10/07/17 07:30 Room Air 10/07/17 07:20 36.7 64 16 104/64 (77) 91 Room Air Notes Mental Status: alert / awake / arousable, participated in evaluation Pt Amnestic to Procedure: Yes Nausea / Vomiting: adequately controlled Pain: adequately controlled Airway Patency, RR, SpO2: stable & adequate BP & HR: stable & adequate Hydration State: stable & adequate Neuraxial Anesthesia: was administered, sensory block is resolving Anesthetic Complications: no major complications apparent
[2017-10-07] MEDS ORDERED: SODIUM CHLORIDE 0.9% 1000ML 1,000 ML IV PRN (14:28)
[2017-10-07] MEDS ORDERED: NALOXONE HCL INJ 0.08 MG in SYRINGE 1.8 ML IV PRN (14:28)
[2017-10-07] MEDS ORDERED: LACTATED RINGER'S 1000ML 500 ML IV PRN (14:28)
[2017-10-07] MEDS ORDERED: NALOXONE HCL INJ 1 MG in SODIUM CHLORIDE 0.9% 1000ML 1,000 ML IV PRN (14:28)
[2017-10-07] MEDS ORDERED: MEPERIDINE HCL 25 MG/ML CARP IV PRN (14:30)
[2017-10-07] MEDS ORDERED: MoRPHine SULFATE 2 MG/ML CARP IV PRN (14:30)
[2017-10-07] MEDS ORDERED: MoRPHine SULFATE PF 1 MG/ML 10 ML AMP/VIAL EPI PRN (14:30)
[2017-10-07] MEDS ORDERED: KETOROLAC TROMETHAMINE 15 MG/ML VIAL IV. PRN (14:30)
[2017-10-07] MEDS ORDERED: NALBUPHINE HCL INJ 10 MG/ML 1ML AMP IV PRN (14:30)
[2017-10-07] MEDS ORDERED: PROMETHAZINE HCL INJ 12.5 MG in SODIUM CHLORIDE 0.9% 50ML 50 ML IV PRN (14:30)
[2017-10-07] MEDS ORDERED: NALOXONE HCL 0.4 MG/1 ML VIAL/CARP IV PRN (14:30)
[2017-10-07] MEDS ORDERED: DC INTRASPINAL MORPHINE SCH (14:30)
[2017-10-07] MEDS ORDERED: NO NARCOTICS OR SEDATIVES SCH (14:30)
[2017-10-07] MEDS ORDERED: DiphenhydrAMINE HCL 50 MG/ML VIAL IV PRN (14:30)
--- NOTE | 2017-10-07 16:26 | Progress Note ---
Medicine Progress Note Date & Time of Visit: Oct 07, 2017 at 16:18. Subjective Pt was seen and examined Lying in bed with no distress She just had surgery done for the right hip She said that she does not have any pain due to the spinal injection Denies any chest pain, palpitation and SOB Objective Last 8 Hrs Date Time Temp Pulse Resp B/P (MAP) Pulse Ox O2 Delivery O2 Flow Rate FiO2 10/07/17 16:14 36.4 64 16 121/75 (90) 100 Nasal Cannula 2.0 10/07/17 14:56 66 16 113/74 (87) 97 Nasal Cannula 2.0 10/07/17 14:36 36.6 63 17 114/65 (81) 94 Nasal Cannula 10/07/17 14:14 36.4 64 18 112/72 (85) 98 Nasal Cannula 2.0 10/07/17 14:14 98 Nasal Cannula 2.0 10/07/17 14:14 18 98 10/07/17 13:20 67 16 109/45 97 Nasal Cannula 2 10/07/17 13:10 66 16 117/58 100 Oxymask 5 10/07/17 13:01 36.6 73 16 107/63 97 Oxymask 10 Physical Exam: General- No acute distress Head- atraumatic Eyes- PERRL, EOMI ENT- oropharynx clear Neck- supple, no JVD Lungs- No wheezing Heart- regular rhythm Abdomen- normal bowel sounds Extremities- no calf tenderness Neuro- alert, oriented x 3; PERRL, EOM Skin- warm & dry Laboratory Results: Last 24 Hours Test 10/06/17 19:45 10/06/17 20:59 10/07/17 06:54 10/07/17 13:10 White Blood Count 11.13 K/uL Red Blood Count 4.52 M/uL Hemoglobin 13.0 g/dL Hematocrit 38.2 % Mean Corpuscular Volume 84.5 fL Mean Corpuscular Hemoglobin 28.8 pg Mean Corpuscular Hemoglobin Concent 34.0 g/dl Platelet Count 243 K/uL Mean Platelet Volume 9.9 fL Neutrophils (%) (Auto) 76.8 % Lymphocytes (%) (Auto) 15.9 % Monocytes (%) (Auto) 6.6 % Eosinophils (%) (Auto) 0.4 % Basophils (%) (Auto) 0.2 % Neutrophils # (Auto) 8.56 K/uL Lymphocytes # (Auto) 1.77 K/uL Monocytes # (Auto) 0.73 K/uL Eosinophils # (Auto) 0.04 K/uL Basophils # (Auto) 0.02 K/uL RDW Standard Deviation 40.3 fL RDW Coefficient of Variation 13.1 % Immature Granulocyte % (Auto) 0.1 % Immature Granulocyte # (Auto) 0.01 K/uL Sodium Level 139 mmol/L Potassium Level mmol/L 3.6 mmol/L Chloride Level 106 mmol/L Carbon Dioxide Level 27 mmol/L Anion Gap 7.0 mmol/L Blood Urea Nitrogen 17 mg/dl Creatinine 0.57 mg/dl Estimated GFR () 108.9 Estimated GFR (Non- 93.9 BUN/Creatinine Ratio 30.0 Random Glucose 89 mg/dl Calcium Level 9.3 mg/dl Magnesium Level mg/dl 2.3 mg/dl Prothrombin Time 10.3 SECONDS Prothromb Time International Ratio 1.0 Bedside Glucose 82 mg/dl Date/Time Source Procedure Growth Status 10/06/17 23:20 Nasal MRSA DNA Surveillance Screen - Final Specimen Negative for MRSA by DNA Probe Complete Assessment & Plan Acute right femoral fracture secondary to mechanical fall CT of Right hip showed acute impacted minimally displaced subcapital right femoral neck fracture. S/P right Hip Percutaneous Screws performed today by Donna Continue pain control Incentive spirometry Monitor H/H PT/OT as per ortho Fall precaution Elevated BP Due to hospital setting BP stable' Hypothyroidism Continue Levothyroxine Stable Parkinson's dx Stable DVT px Lovenox will resume in am CODE STATUS FULL CODE Current Inpatient Medications: Current Inpatient Medications Medications (Trade) Dose Ordered Sig/Munira Route Start Time Stop Time Status Last Admin Dose Admin Acetaminophen (Tylenol Tab) 650 mg Q4H PRN PO 10/06/17 20:45 11/05/17 20:44 10/07/17 10:17 650 MG Acetaminophen (Tylenol Tab) 650 mg Q6H PRN PO 10/06/17 20:45 11/05/17 20:44 10/07/17 01:30 650 MG Senna/Docusate Sodium (Senokot S Tab) 2 tab HS PO 10/06/17 23:00 11/05/17 22:59 10/06/17 23:21 2 TAB Polyethylene (Miralax Powder Packet) 17 gm DAILY PRN PO 10/06/17 20:45 11/05/17 20:44 Magnesium Hydroxide (Milk Of Magnesia Susp) 30 ml DAILY PRN PO 10/06/17 20:45 11/05/17 20:44 Bisacodyl (Dulcolax Supp) 10 mg DAILY PRN [place] 10/06/17 20:45 11/05/17 20:44 Sodium Biphosphate/ Sodium Phosphate (Fleet Enema) 132 ml PRN PRN [place] 10/06/17 20:45 Prochlorperazine Edisylate 5 mg/ Syringe 5 ml @ 5 mls/min Q6H PRN IV 10/06/17 20:45 11/05/17 20:44 Levothyroxine Sodium (Synthroid Tab) 88 mcg DAILYBB PO 10/07/17 06:00 11/06/17 05:59 10/07/17 06:21 88 MCG Potassium Chloride/Dextrose/ Sod Cl 1,000 ml @ 50 mls/hr Q20H IV 10/07/17 00:00 11/06/17 00:00 10/06/17 23:21 50 MLS/HR Fentanyl Citrate (Fentanyl Inj) 50 mcg Q5M PRN IV 10/07/17 12:45 10/07/17 17:45 Ondansetron HCl (Zofran Inj) 4 mg ONE PRN IV 10/07/17 12:45 10/07/17 17:45 Promethazine HCl 6.25 mg/Sodium Chloride 50.25 ml @ 202 mls/hr ONE PRN IV 10/07/17 12:45 10/07/17 17:45 Ephedrine Sulfate (EpHEDrine SULFATE INJ) 5 mg Q5M PRN IV 10/07/17 12:45 10/07/17 17:45 Atropine Sulfate (Atropine Sulfate 0.1mg/ml Inj) 0.5 mg Q1M PRN IV 10/07/17 12:45 10/07/17 17:45 Enoxaparin Sodium (Lovenox Inj) 40 mg Q24H SQ 10/08/17 06:00 11/07/17 05:59 Cefazolin Sodium 1000 mg/Syringe 7.5 ml @ 2.5 mls/min Q8H IV 10/07/17 18:00 10/08/17 02:02 Naloxone HCl (Narcan Inj) 0.1 mg UD PRN IV 10/07/17 14:30 10/08/17 07:00 Diphenhydramine HCl (Benadryl Inj) 25 mg Q6H PRN IV 10/07/17 14:30 10/08/17 07:00 Nalbuphine HCl (Nubain Inj) 5 mg Q10M PRN IV 10/07/17 14:30 10/08/17 07:00 Naloxone HCl 1 mg/ Sodium Chloride 1,002.5 ml @ 50 mls/hr Q20H3M PRN IV 10/07/17 14:28 10/08/17 07:00 Ondansetron HCl (Zofran Inj) 4 mg Q6H PRN IV 10/07/17 14:30 10/08/17 07:00 Promethazine HCl 12.5 mg/Sodium Chloride 50.5 ml @ 200 mls/hr Q6H PRN IV 10/07/17 14:30 10/08/17 07:00 Ketorolac Tromethamine (Toradol Inj) 30 mg Q6H PRN IV. 10/07/17 14:30 10/08/17 07:00 Meperidine HCl (Demerol Inj) 25 mg Q15M PRN IV 10/07/17 14:30 10/08/17 07:00 Miscellaneous Information (Dc Intraspinal Morphine) 1 ea ONE N/A 10/07/17 14:30 10/08/17 07:00 Miscellaneous Information (No Narcotics Or Sedatives) 1 ea UD N/A 10/07/17 14:30 10/08/17 07:00 Naloxone HCl 0.08 mg/Syringe 2 ml @ 1 mls/min Q2M PRN IV 10/07/17 14:28 10/08/17 07:00 Morphine Sulfate (MoRPHine SULFATE INJ) 2 mg Q2H PRN IV 10/07/17 14:30 10/08/17 07:00 Lactated Ringer's 500 ml @ 999 mls/hr Q31M PRN IV 10/07/17 14:28 10/08/17 07:00 Ephedrine Sulfate (EpHEDrine SULFATE INJ) 10 mg Q5M PRN IV 10/07/17 14:30 10/08/17 07:00 Morphine Sulfate (Duramorph Pf Inj) TODAY PRN EPI 10/07/17 14:30 Sodium Chloride 1,000 ml @ 15 mls/hr Q24H PRN IV 10/07/17 14:28 10/08/17 07:00 Ketorolac Tromethamine (Toradol Inj) 15 mg Q6H PRN IV. 10/08/17 07:00 10/13/17 06:59 Oxycodone HCl (Roxicodone Immediate Rel Tab) 5 mg Q4H PRN PO 10/08/17 07:00 10/22/17 06:59 Oxycodone HCl (Roxicodone Immediate Rel Tab) 10 mg Q4H PRN PO 10/08/17 07:00 10/22/17 06:59 Morphine Sulfate (MoRPHine SULFATE INJ) 2 mg Q2H PRN IV 10/08/17 07:00 10/22/17 06:59 Morphine Sulfate (MoRPHine SULFATE INJ) 4 mg Q2H PRN IV 10/08/17 07:00 10/22/17 06:59 Naloxone HCl (Narcan Inj) 0.1 mg PRN PRN IV 10/08/17 07:00 11/07/17 06:59 Lorazepam (Ativan Inj) 0.5 mg Q4H PRN IV 10/08/17 07:00 11/07/17 06:59
[2017-10-07] MEDS: CEFAZOLIN IV 1,000 MG in SYRINGE 0 ML IV SCH (18:24)
--- NOTE | 2017-10-07 19:43 | PROGRESS NOTE ---
DATE: 10/07/2017 She is resting comfortably in bed. Her pain is well controlled. She has stable vital signs. Dressing is dry. Surgical findings discussed. We talked about the postoperative plan. She has a 1+ dorsalis pedis pulse and has normal distal neurovascular function and normal strength. Will start her on some blood thinner tonight and try get her off to [facility] when ready.
[2017-10-07] MEDS: D5NSS + 20MEQ KCL 1,000 ML IV SCH (20:11)
[2017-10-07] MEDS: DOCUSATE SODIUM/SENNA 50/8.6MG TAB PO SCH (20:14)
[2017-10-08] VITALS (14 sets, daily range): BP systolic 102–131; BP diastolic 67–81; PULSE 63–77; TEMP 36.6–37.2; O2SAT 91–97
[2017-10-08] MEDS: CEFAZOLIN IV 1,000 MG in SYRINGE 0 ML IV SCH (02:32)
[2017-10-08] MEDS: LEVOTHYROXINE 88 MCG TAB PO SCH (06:09)
[2017-10-08] MEDS: ENOXAPARIN 40 MG/0.4 ML SYR SQ SCH (06:09)
[2017-10-08 06:10] LABS: HEMATOCRIT 34.3 % (37-47); HEMOGLOBIN 11.3 g/dL (12.0-16.0); MEAN CELL VOLUME 86.8 fL (80-100); MEAN CORPUSCULAR HEMOGLOBIN 28.6 pg (25-34); MEAN CORPUSCULAR HGB CONC 32.9 g/dl (32-36); MEAN PLATELET VOLUME 9.9 fL (7.4-10.4); PLATELET COUNT 206 K/uL (130-400); RED CELL DISTRIBUTION WIDTH CV 13.3 % (11.5-14.5); RED CELL DISTRIBUTION WIDTH SD 42.9 fL (36.4-46.3); WHITE BLOOD COUNT 7.26 K/uL (4.8-10.8)
[2017-10-08] MEDS ORDERED: NURSING DECISION MEDICATION ORDER SCH (06:30)
[2017-10-08 06:44] LABS: CALCIUM 8.1 mg/dl (8.5-10.1); CREATININE 0.67 mg/dl (0.60-1.20); POTASSIUM 4.4 mmol/L (3.5-5.1)
[2017-10-08] MEDS ORDERED: OXYCODONE HCL IR 5 MG TAB (IMMEDIATE RELEASE) PO PRN ×2 (07:00)
[2017-10-08] MEDS ORDERED: LORAZEPAM 2 MG/ML 1 ML VIAL IV PRN (07:00)
[2017-10-08] MEDS ORDERED: MoRPHine SULFATE 2 MG/ML CARP IV PRN (07:00)
[2017-10-08] MEDS ORDERED: MoRPHine SULFATE 4 MG/ML 1 ML CARP\\VIAL IV PRN (07:00)
[2017-10-08] MEDS ORDERED: NALOXONE HCL 0.4 MG/1 ML VIAL/CARP IV PRN (07:00)
[2017-10-08] MEDS ORDERED: KETOROLAC TROMETHAMINE 15 MG/ML VIAL IV. PRN (07:00)
--- NOTE | 2017-10-08 09:21 | Orthopedic Progress Note ---
Orthopedic Progress Note Date of Service Oct 08, 2017. Subjective Post OP Day: 1 Reports: feeling well, pain controlled w PO medications, Denies: complaints, chest pain, SOB, nausea / vomiting, light headedness, calf pain Additional Notes: States pain much improved since surgery. She says that she's walking in her room without the walker. Objective calves soft nontender, N/V intact, capillary refill less than 2 sec., dressing C /D/I, A&O x3, toes mobile Distal pulses 1+, Strength 5/5, Tolerates knee, hip, ankle ROM Date Time Temp Pulse Resp B/P (MAP) Pulse Ox O2 Delivery O2 Flow Rate FiO2 10/08/17 07:25 36.6 63 16 109/71 (84) 91 Room Air 10/08/17 07:00 Room Air Nasal Cannula 10/08/17 06:58 16 91 10/08/17 06:15 16 92 10/08/17 05:15 16 96 10/08/17 04:15 14 97 10/08/17 03:15 16 97 10/08/17 02:44 36.7 71 16 103/67 (79) 91 Nasal Cannula 2.0 10/08/17 02:15 16 96 10/08/17 01:15 14 95 10/08/17 00:15 Nasal Cannula 2.0 10/08/17 00:15 16 96 10/07/17 23:30 37.2 84 16 112/67 (82) 94 Room Air 10/07/17 23:15 16 94 10/07/17 22:15 16 91 10/07/17 21:15 18 92 10/07/17 20:19 37.1 91 17 126/74 (91) 93 Room Air 10/07/17 19:20 18 94 10/07/17 18:15 17 92 10/07/17 17:13 16 98 10/07/17 16:14 36.4 64 16 121/75 (90) 100 Nasal Cannula 2.0 10/07/17 16:00 97 Nasal Cannula 2.0 10/07/17 14:56 66 16 113/74 (87) 97 Nasal Cannula 2.0 10/07/17 14:36 36.6 63 17 114/65 (81) 94 Nasal Cannula 10/07/17 14:14 36.4 64 18 112/72 (85) 98 Nasal Cannula 2.0 10/07/17 14:14 98 Nasal Cannula 2.0 10/07/17 14:14 18 98 10/07/17 13:20 67 16 109/45 97 Nasal Cannula 2 10/07/17 13:10 66 16 117/58 100 Oxymask 5 10/07/17 13:01 36.6 73 16 107/63 97 Oxymask 10 Laboratory Results 24 Hours: Test 10/08/17 05:46 Hematocrit 34.3 % Hemoglobin 11.3 g/dL Assessment & Plan Assessment: POD 1 - S/P ORIF right femoral neck fracture Plan: OOB/WBAT RLE with assistance of a walker, encouraged her to use a walker, even though she may feel like she doesn't need it PT/OT today. Post op x-rays reviewed. Ice to right hip as needed for pain/swelling Elevate right lower extremity as needed for pain/swelling Paolo stocking bilateral lower extremities for DVT prophylaxis Lovenox daily as ordered for DVT prophylaxis Pain medication as prescribed, PRN Regular diet Follow up with Dr. Thompson approximately 2 weeks after surgery SS for disposition - patient requesting [facility] for a couple of days post operatively, then plans to attend out patient PT. Catarino from orthopedic standpoint for discharge when medically stable. All questions answered. Will discuss findings with Dr. Thompson
--- NOTE | 2017-10-08 09:27 | Consultant Recommendations ---
Manager Operations Recommendations Date of Service Oct 08, 2017. Manager Operations Recommendations Out of bed, weight-bear as tolerated right lower extremity with the assistance of a walker. Ice and elevate right lower extremity as needed for pain and swelling. Encouraged ankle pumps, quad sets and gluteal sets as tolerated. Exercises as instructed by the physical therapist. Allowed for range of motion of all lower extremity joints. No hip precautions necessary. Lovenox 40 mg daily 14 days postoperatively for DVT prophylaxis. Paolo stockings for DVT prophylaxis. On during the day, off at night. Dressing changes to right hip daily and as needed. Keep incision covered. He may shower as of Tuesday, October 10, 2017. Pad incision dry. Do not scrub or soak incision. CBC on Wednesday, October 11, 2017. Prescription on chart. Call [phone] with any problems, questions or need to reschedule appointment. You have a follow up appointment with Dr. Thompson on 10/20/17 at 2:15 p.m.
[2017-10-08] MEDS: ACETAMINOPHEN 325 MG TAB PO PRN ×2 (11:03→21:01)
--- NOTE | 2017-10-08 13:10 | Progress Note ---
Medicine Progress Note Date & Time of Visit: Oct 08, 2017 at 12:59. Subjective Pt was seen and examined Sitting in bed with no distress with at bedside Pt said that she only has very minimal pain She said that she walked in her room without using any walker Pt said that she did well in therapy today Denies any chest pain, palpitation, dizziness and SOB Objective Last 8 Hrs Date Time Temp Pulse Resp B/P (MAP) Pulse Ox O2 Delivery O2 Flow Rate FiO2 10/08/17 10:37 37.2 68 16 114/74 (87) 92 Room Air 10/08/17 07:25 36.6 63 16 109/71 (84) 91 Room Air 10/08/17 07:00 Room Air Nasal Cannula 10/08/17 06:58 16 91 10/08/17 06:15 16 92 10/08/17 05:15 16 96 Physical Exam: General- No acute distress Head- atraumatic Eyes- PERRL, EOMI ENT- oropharynx clear Neck- supple, no JVD Lungs- No wheezing Heart- regular rhythm Abdomen- normal bowel sounds Extremities- no calf tenderness Neuro- alert, oriented x 3; PERRL, EOM Skin- warm & dry Laboratory Results: Last 24 Hours Test 10/07/17 13:10 10/08/17 05:46 Bedside Glucose 82 mg/dl White Blood Count 7.26 K/uL Red Blood Count 3.95 M/uL Hemoglobin 11.3 g/dL Hematocrit 34.3 % Mean Corpuscular Volume 86.8 fL Mean Corpuscular Hemoglobin 28.6 pg Mean Corpuscular Hemoglobin Concent 32.9 g/dl RDW Standard Deviation 42.9 fL RDW Coefficient of Variation 13.3 % Platelet Count 206 K/uL Mean Platelet Volume 9.9 fL Sodium Level 139 mmol/L Potassium Level 4.4 mmol/L Chloride Level 106 mmol/L Carbon Dioxide Level 27 mmol/L Anion Gap 6.0 mmol/L Blood Urea Nitrogen 14 mg/dl Creatinine 0.67 mg/dl Est Creatinine Clear Calc Drug Dose 67.5 ml/min Estimated GFR () 103.2 Estimated GFR (Non- 89.1 BUN/Creatinine Ratio 20.4 Random Glucose 98 mg/dl Calcium Level 8.1 mg/dl Assessment & Plan Acute right femoral fracture secondary to mechanical fall CT of Right hip showed acute impacted minimally displaced subcapital right femoral neck fracture. S/P day1 Right Hip Percutaneous Screws performed today by Dr. Thompson Continue pain control Incentive spirometry Monitor H/H Continue PT/OT Fall precaution Plan to go to rehab Follow up with ortho in 2 weeks Ortho recommendations: Out of bed, weight-bear as tolerated right lower extremity with the assistance of a walker. Ice and elevate right lower extremity as needed for pain and swelling. Encouraged ankle pumps, quad sets and gluteal sets as tolerated. Exercises as instructed by the physical therapist. Allowed for range of motion of all lower extremity joints. No hip precautions necessary. Elevated BP Due to hospital setting BP stable' Hypothyroidism Continue Levothyroxine Stable Parkinson's dx Stable DVT px Continue Lovenox 40 mg subq daily x14 days as per ortho Paolo stockings for DVT prophylaxis. On during the day, off at night. CODE STATUS FULL CODE Current Inpatient Medications: Current Inpatient Medications Medications (Trade) Dose Ordered Sig/Munira Route Start Time Stop Time Status Last Admin Dose Admin Acetaminophen (Tylenol Tab) 650 mg Q4H PRN PO 10/06/17 20:45 11/05/17 20:44 10/08/17 11:03 650 MG Acetaminophen (Tylenol Tab) 650 mg Q6H PRN PO 10/06/17 20:45 11/05/17 20:44 10/07/17 01:30 650 MG Senna/Docusate Sodium (Senokot S Tab) 2 tab HS PO 10/06/17 23:00 11/05/17 22:59 10/07/17 20:14 2 TAB Polyethylene (Miralax Powder Packet) 17 gm DAILY PRN PO 10/06/17 20:45 11/05/17 20:44 Magnesium Hydroxide (Milk Of Magnesia Susp) 30 ml DAILY PRN PO 10/06/17 20:45 11/05/17 20:44 Bisacodyl (Dulcolax Supp) 10 mg DAILY PRN [place] 10/06/17 20:45 11/05/17 20:44 Sodium Biphosphate/ Sodium Phosphate (Fleet Enema) 132 ml PRN PRN [place] 10/06/17 20:45 Prochlorperazine Edisylate 5 mg/ Syringe 5 ml @ 5 mls/min Q6H PRN IV 10/06/17 20:45 11/05/17 20:44 Levothyroxine Sodium (Synthroid Tab) 88 mcg DAILYBB PO 10/07/17 06:00 11/06/17 05:59 10/08/17 06:09 88 MCG Enoxaparin Sodium (Lovenox Inj) 40 mg Q24H SQ 10/08/17 06:00 11/07/17 05:59 10/08/17 06:09 40 MG Morphine Sulfate (Duramorph Pf Inj) TODAY PRN EPI 10/07/17 14:30 Ketorolac Tromethamine (Toradol Inj) 15 mg Q6H PRN IV. 10/08/17 07:00 10/13/17 06:59 10/08/17 00:22 15 MG Oxycodone HCl (Roxicodone Immediate Rel Tab) 5 mg Q4H PRN PO 10/08/17 07:00 10/22/17 06:59 Oxycodone HCl (Roxicodone Immediate Rel Tab) 10 mg Q4H PRN PO 10/08/17 07:00 10/22/17 06:59 Morphine Sulfate (MoRPHine SULFATE INJ) 2 mg Q2H PRN IV 10/08/17 07:00 10/22/17 06:59 Morphine Sulfate (MoRPHine SULFATE INJ) 4 mg Q2H PRN IV 10/08/17 07:00 10/22/17 06:59 Naloxone HCl (Narcan Inj) 0.1 mg PRN PRN IV 10/08/17 07:00 11/07/17 06:59 Lorazepam (Ativan Inj) 0.5 mg Q4H PRN IV 10/08/17 07:00 11/07/17 06:59
[2017-10-08] MEDS ORDERED: TRAMADOL HCL 50 MG TAB PO PRN (15:00)
[2017-10-08] MEDS ORDERED: LVNIS40 SQ ×2 (15:02)
[2017-10-08] MEDS ORDERED: ULT50X PO ×2 (15:02)
[2017-10-08] MEDS ORDERED: HYDR-5688 PO ×2 (15:02)
[2017-10-08] MEDS: DOCUSATE SODIUM/SENNA 50/8.6MG TAB PO SCH (20:01)
[2017-10-09] MEDS: ACETAMINOPHEN 325 MG TAB PO PRN ×2 (01:10→12:27)
[2017-10-09] MEDS: LEVOTHYROXINE 88 MCG TAB PO SCH (05:43)
[2017-10-09] MEDS: ENOXAPARIN 40 MG/0.4 ML SYR SQ SCH (05:44)
[2017-10-09 07:30] VITALS: BP 117/80; PULSE 76; TEMP 36.7; O2SAT 95
--- NOTE | 2017-10-09 10:32 | Orthopedic Progress Note ---
Orthopedic Progress Note Date of Service Oct 09, 2017. Subjective Post OP Day: 2 Reports: feeling well, pain controlled w PO medications, Denies: complaints, chest pain, SOB, nausea / vomiting, light headedness, calf pain Additional Notes: States a lot of stiffness in her thigh, but she feels she's getting around well. Objective calves soft nontender, N/V intact, capillary refill less than 2 sec., dressing C /D/I, incision C/D/I, A&O x3, toes mobile Mild ecchymosis around incision, dressings changed by nursing. No calf tenderness with palpation, mild distal edema, distal pulses 1+ Date Time Temp Pulse Resp B/P (MAP) Pulse Ox O2 Delivery O2 Flow Rate FiO2 10/09/17 09:16 Room Air 10/09/17 07:30 36.7 76 16 117/80 (92) 95 Room Air 10/08/17 23:55 36.6 77 16 131/81 (98) 95 Room Air 10/08/17 23:45 Room Air 10/08/17 19:50 Room Air 10/08/17 19:09 92 Room Air 10/08/17 15:14 36.9 67 18 102/67 (79) 92 Room Air 10/08/17 10:37 37.2 68 16 114/74 (87) 92 Room Air Assessment & Plan Assessment: POD 2 - S/P ORIF right femoral neck fracture Plan: OOB/WBAT RLE with assistance of a walker, encouraged her to use a walker, even though she may feel like she doesn't need it PT/OT today. Post op x-rays reviewed. Ice to right hip as needed for pain/swelling Elevate right lower extremity as needed for pain/swelling Paolo stocking bilateral lower extremities for DVT prophylaxis Lovenox daily as ordered for DVT prophylaxis Pain medication as prescribed, PRN Regular diet Follow up with Dr. Thompson approximately 2 weeks after surgery Okay from orthopedic standpoint for discharge today Plans for home with home health. Patient did well with PT today, awaiting for walker to be delivered to home, then ready for discharge. All questions answered. Will discuss findings with Dr. Thompson Discharge Planning Discharge Planning: home with home health Pain Management: Ultram, [place] DVT Prophylaxis: TEDs, Lovenox (40 mg daily x 2-4 weeks)
[2017-10-09 12:14] VITALS: BP 117/80; PULSE 76; TEMP 36.7; O2SAT 95
--- NOTE | 2017-10-09 13:34 | Progress Note ---
Medicine Progress Note Date & Time of Visit: Oct 09, 2017 at 13:21. Subjective Pt was seen and examined Sitting in bed with no distress already got dress Pt said that she feels fine She said that she is ready to go home She did well with therapy today she has been ambulating well with walker Pain has been managed well with Tylenol Denies any chest pain, palpitation, dizziness and SOB Objective Last 8 Hrs Date Time Temp Pulse Resp B/P (MAP) Pulse Ox O2 Delivery O2 Flow Rate FiO2 10/09/17 12:14 36.7 76 16 95 Room Air 10/09/17 09:16 Room Air 10/09/17 07:30 36.7 76 16 117/80 (92) 95 Room Air Physical Exam: General- No acute distress Head- atraumatic Eyes- PERRL, EOMI ENT- oropharynx clear Neck- supple, no JVD Lungs- No wheezing Heart- regular rhythm Abdomen- normal bowel sounds Extremities- no calf tenderness Neuro- alert, oriented x 3; PERRL, EOM Skin- warm & dry Assessment & Plan Acute right femoral fracture secondary to mechanical fall CT of Right hip showed acute impacted minimally displaced subcapital right femoral neck fracture. S/P day#2 Right Hip Percutaneous Screws performed today by Dr. Thompson Pain well control with tylenol Does not want to take any narcotic Has been denies by [facility] since pt is ambulating well Continue PT/OT with home health Fall precaution Follow up with ortho in 2 weeks Continue PT/OT with home health Check CBC to monitor hemoglobin OK from ortho standpoint to discharge home Walker delivered in the hospital for pt to take home Ortho recommendations: Out of bed, weight-bear as tolerated right lower extremity with the assistance of a walker. Ice and elevate right lower extremity as needed for pain and swelling. Encouraged ankle pumps, quad sets and gluteal sets as tolerated. Exercises as instructed by the physical therapist. Allowed for range of motion of all lower extremity joints. No hip precautions necessary. Elevated BP Due to hospital setting BP stable' Hypothyroidism Continue Levothyroxine Stable Parkinson's dx Stable DVT px Continue Lovenox 40 mg subq daily x14 days as per ortho Paolo stockings for DVT prophylaxis. On during the day, off at night. CODE STATUS FULL CODE Disposition Follow up with Dr. Mcclelland ( Dr. Kwon's colleague ) on 10/15 @ 10:55 AM Follow with with Ortho Dr. Thompson in 2 weeks (Please call for the appointment ) Consultants: Ortho Current Inpatient Medications: Current Inpatient Medications Medications (Trade) Dose Ordered Sig/Munira Route Start Time Stop Time Status Last Admin Dose Admin Acetaminophen (Tylenol Tab) 650 mg Q4H PRN PO 10/06/17 20:45 11/05/17 20:44 10/09/17 12:27 650 MG Acetaminophen (Tylenol Tab) 650 mg Q6H PRN PO 10/06/17 20:45 11/05/17 20:44 10/07/17 01:30 650 MG Senna/Docusate Sodium (Senokot S Tab) 2 tab HS PO 10/06/17 23:00 11/05/17 22:59 10/08/17 20:01 2 TAB Polyethylene (Miralax Powder Packet) 17 gm DAILY PRN PO 10/06/17 20:45 11/05/17 20:44 Magnesium Hydroxide (Milk Of Magnesia Susp) 30 ml DAILY PRN PO 10/06/17 20:45 11/05/17 20:44 Bisacodyl (Dulcolax Supp) 10 mg DAILY PRN [place] 10/06/17 20:45 11/05/17 20:44 Sodium Biphosphate/ Sodium Phosphate (Fleet Enema) 132 ml PRN PRN [place] 10/06/17 20:45 Prochlorperazine Edisylate 5 mg/ Syringe 5 ml @ 5 mls/min Q6H PRN IV 10/06/17 20:45 11/05/17 20:44 Levothyroxine Sodium (Synthroid Tab) 88 mcg DAILYBB PO 10/07/17 06:00 11/06/17 05:59 10/09/17 05:43 88 MCG Enoxaparin Sodium (Lovenox Inj) 40 mg Q24H SQ 10/08/17 06:00 11/07/17 05:59 10/09/17 05:44 40 MG Oxycodone HCl (Roxicodone Immediate Rel Tab) 5 mg Q4H PRN PO 10/08/17 07:00 10/22/17 06:59 Oxycodone HCl (Roxicodone Immediate Rel Tab) 10 mg Q4H PRN PO 10/08/17 07:00 10/22/17 06:59 Morphine Sulfate (MoRPHine SULFATE INJ) 2 mg Q2H PRN IV 10/08/17 07:00 10/22/17 06:59 Morphine Sulfate (MoRPHine SULFATE INJ) 4 mg Q2H PRN IV 10/08/17 07:00 10/22/17 06:59 Naloxone HCl (Narcan Inj) 0.1 mg PRN PRN IV 10/08/17 07:00 11/07/17 06:59 Lorazepam (Ativan Inj) 0.5 mg Q4H PRN IV 10/08/17 07:00 11/07/17 06:59 Tramadol HCl (Ultram Tab) 50 mg for mild pain 1-5 100... Q4H PRN PO 10/08/17 15:00 11/07/17 14:59
--- NOTE | 2017-10-09 13:47 | Discharge Instructions ---
Discharge Instructions Date of Service Oct 09, 2017. Admission Reason for Admission: Femoral Fracture Discharge Discharge Diagnosis / Problem: Right femoral neck fracture Discharge Goals Goal(s): Decrease discomfort, Improve function, Improve disease control Activity Recommendations Activity Limitations: resume your previous activity (weight-bear as tolerated right lower extremity with the assistance of a walker.) . Instructions / Follow-Up Instructions / Follow-Up Follow up with primary care provider Dr. Mcclelland (Dr. Kwon's colleague) on 10/15 @ 10:55 AM Follow up with ortho Dr. Thompson on 10/20/17 at 2:15 p.m. Check CBC on 10/11 (Wednesday) to monitor your hemoglobin Follow up ortho recommendation below Continue physical and occupational therapy with home health (case management coordinator will arrange that for you) Continue lovenox 40mg subq daily for Deep venous thrombosis prophylaxis Monitor for any signs of bleeding. If any bleeding develops, please notify your physician or seek medical attention If taking any narcotic, please do not drive or operate any machine after taking the narcotic due to risk of lethargy and drowsiness Fall precaution Current Hospital Diet Patient's current hospital diet: Regular Diet Discharge Diet Recommended Diet: Regular Diet Procedures Procedures Performed: Right Hip Percutaneous Screws Pending Studies Studies pending at discharge: no Laboratory Results Hemoglobin A1c Test 09/10/17 10:35 Range/Units Estimated Average Glucose 120 mg/dl Hemoglobin A1c 5.8 H 4.5-5.6 % Lipid Panel Test 09/10/17 10:35 Range/Units Triglycerides Level 53 0-150 mg/dl Cholesterol Level 184 0-200 mg/dl HDL Cholesterol 66 mg/dl Cholesterol/HDL Ratio 2.8 LDL Cholesterol, Calculated 107 mg/dl Medical Emergencies . Who to Call and When: Medical Emergencies: If at any time you feel your situation is an emergency, please call 911 immediately. . Non-Emergent Contact Non-Emergency issues call your: Primary Care Provider Call Non-Emergent contact if: temperature is above 101, your pain is not controlled, your pain is worsening, wound has increased drainage, wound has increased redness, wound has increased pain, you have any medication questions . . "Provider Documentation" section prepared by Kuldeep Alcantara. . Instrument Technician Helper Recommendations Instrument Technician Helper Recommendations: Out of bed, weight-bear as tolerated right lower extremity with the assistance of a walker. Ice and elevate right lower extremity as needed for pain and swelling. Encouraged ankle pumps, quad sets and gluteal sets as tolerated. Exercises as instructed by the physical therapist. Allowed for range of motion of all lower extremity joints. No hip precautions necessary. Lovenox 40 mg daily 14 days postoperatively for DVT prophylaxis. Paolo stockings for DVT prophylaxis. On during the day, off at night. Dressing changes to right hip daily and as needed. Keep incision covered. He may shower as of Tuesday, October 10, 2017. Pad incision dry. Do not scrub or soak incision. CBC on Wednesday, October 11, 2017. Prescription on chart. Call [phone] with any problems, questions or need to reschedule appointment. You have a follow up appointment with Dr. Thompson on 10/20/17 at 2:15 p.m. [place] Search Results: see additional documentation (unable to find on the [place] drug [place])
--- NOTE | 2017-10-10 23:35 | Discharge Summary ---
Discharge Summary Date of Service Oct 10, 2017. Discharge Summary Admission Date: Oct 06, 2017 at 20:38 Discharge Date: Oct 09, 2017 Discharge Disposition: Home with services Principal Diagnosis: Acute right femoral fracture secondary to mechanical fall Secondary Diagnoses/Problems: Elevated BP HTN Parkinson's dx Hypothyroidism Procedures: R HIP UNILATERAL 2 VIEWS CLINICAL HISTORY: R hip pain pain COMPARISON: None. DISCUSSION: Suggestion of potential slight double density of the subcapital region of the right femoral head and neck. No well-defined cortical break. No evidence for acetabular protrusion. There is no evidence for soft tissue swelling. IMPRESSION: Possible subacute cortical fracture versus overlap artifact. CT study of the right hip is suggested as follow-up. The above report was generated using voice recognition software. It may contain grammatical, syntax or spelling errors. Electronically signed by: Sameer Florez M.D. 10/06/2017 4:48 PM Dictated Date/Time: 10/06/2017 4:[address] OF THE RIGHT HIP WITHOUT CONTRAST CLINICAL HISTORY: Right hip pain following fall. Possible right hip fracture. COMPARISON STUDY: Right hip radiographs performed earlier today. TECHNIQUE: Axial images of the right hip were obtained without IV contrast. Sagittal and coronal reconstructions were viewed. FINDINGS: Note is made of an acute impacted minimally displaced subcapital right femoral fracture. No additional fractures are identified on this examination. Alignment of the right hip is anatomic. No suspicious osseous lesion is present. Visualized portions of the right hemipelvis are unremarkable. IMPRESSION: Acute impacted minimally displaced subcapital right femoral neck fracture. Electronically signed by: Asaf Carolina M.D. 10/06/2017 5:48 PM Dictated Date/Time: 10/06/2017 5:42 PM [~ rep ct add3]] CROSSTABLE LATERAL RADIOGRAPH OF THE RIGHT HIP CLINICAL HISTORY: Fracture. COMPARISON: Right hip radiographs and CT of the right hip performed earlier today. FINDINGS: Crosstable lateral view demonstrates an impacted subcapital right femoral neck fracture. No additional fractures are identified on this lateral projection. IMPRESSION: Acute impacted subcapital right femoral neck fracture. Electronically signed by: Asaf Carolina M.D. 10/06/2017 7:20 PM Dictated Date/Time: 10/06/2017 7:18 PM [~ rep ct add3]] CHEST ONE VIEW PORTABLE CLINICAL HISTORY: PRE-OP COMPARISON STUDY: No previous studies for comparison. FINDINGS: Lung volumes are normal. No pneumothorax or pleural effusion is noted. There is no consolidation or evidence for pulmonary edema. Borderline cardiomegaly is noted. A metallic density projecting over the neck is likely on the patient. IMPRESSION: No acute cardiopulmonary findings. Electronically signed by: Asaf Carolina M.D. 10/06/2017 7:21 PM Dictated Date/Time: 10/06/2017 7:20 PM [~ rep ct add3]] INTRAOPERATIVE FLUOROSCOPIC IMAGES OF THE RIGHT HIP CLINICAL HISTORY: Percutaneous screws. COMPARISON STUDY: Right hip radiographs and CT of the right hip October 06, 2017. FLUOROSCOPY TIME: 53 seconds. FINDINGS: 3 intraoperative fluoroscopic images demonstrate screw fixation of the impacted subcapital fracture of the right femur. Hardware is intact. There are no unexpected radiopaque foreign bodies. Alignment appears near anatomic. IMPRESSION: Expected findings following internal fixation of the subcapital right femoral neck fracture. Electronically signed by: Asaf Carolina M.D. 10/07/2017 1:00 PM Dictated Date/Time: 10/07/2017 12:58 PM Consultations: Ortho Medication Reconciliation New Medications: Hydrocodone/Acetaminophen 5MG/325MG ([place] 5MG/325MG) Tab 1-2 TABLET PO Q4H PRN for Pain, #30 TAB Enoxaparin (Enoxaparin Sodium) 40 Mg/0.4 Ml Inj 40 MG SQ Q24H for 14 Days, #14 SYR 1 Refill Tramadol HCl (Tramadol HCl) 50 Mg Tab 50-100 MG PO Q4H PRN for Pain, #30 TAB 0 Refills Continued Medications: Levothyroxine Sodium (Levothyroxine Sodium) 88 Mcg Tab 88 MCG PO QAM Admission Information HPI (per Admitting provider): CHIEF COMPLAINT: Right hip pain. HISTORY OF PRESENT ILLNESS: History obtained from the patient and records. Medical history significant for hypothyroidism, Parkinson disease. Patient was playing pickleball with some friends at the [facility] today when she fell down on her right side later noting achy right upper leg pain. No chest pain, no shortness of breath. Denies head trauma. Patient brought to the Emergency Room. Physical Exam (per Admitting): VITAL SIGNS: Blood pressure was noted to be 152/81, pulse rate 80 RR 18 T 37 O2 sats 94 on room air. GENERAL: Noted to be slightly uncomfortable, no respiratory distress. SKIN: Normal color, warm. HEENT: [place] palpebral conjunctivae. No ptosis. Dry mucosa. NECK: Supple, nontender. CHEST: Decreased breath sounds. No tenderness. HEART: Regular rate and rhythm, no murmur. ABDOMEN: Soft, nontender. EXTREMITIES: Tenderness, right upper leg. No lower LE swelling. NEUROLOGIC: Coherent. No gross focality except for rest tremors on the right upper extremity which is chronic. Hospital Course Acute right femoral fracture secondary to mechanical fall CT of Right hip showed acute impacted minimally displaced subcapital right femoral neck fracture. S/P day#2 Right Hip Percutaneous Screws performed today by Dr. Thompson Pain well control with tylenol Does not want to take any narcotic Has been denies by Contacts+ since pt is ambulating well Continue PT/OT with home health Fall precaution Follow up with ortho in 2 weeks Continue PT/OT with home health Check CBC to monitor hemoglobin OK from ortho standpoint to discharge home Walker delivered in the hospital for pt to take home Ortho recommendations: Out of bed, weight-bear as tolerated right lower extremity with the assistance of a walker. Ice and elevate right lower extremity as needed for pain and swelling. Encouraged ankle pumps, quad sets and gluteal sets as tolerated. Exercises as instructed by the physical therapist. Allowed for range of motion of all lower extremity joints. No hip precautions necessary. Elevated BP Due to hospital setting BP stable' Hypothyroidism Continue Levothyroxine Stable Parkinson's dx Stable DVT px Continue Lovenox 40 mg subq daily x14 days as per ortho Paolo stockings for DVT prophylaxis. On during the day, off at night. CODE STATUS FULL CODE Disposition Follow up with Dr. Mcclelland ( Dr. Kwon's colleague ) on 10/15 @ 10:55 AM Follow with with Ortho Dr. Thompson in 2 weeks (Please call for the appointment ) Total time spent on discharge = 35 minutes This includes examination of the patient, discharge planning, medication reconciliation, and communication with other providers. Discharge Instructions Discharge Instructions Date of Service Oct 09, 2017. Admission Reason for Admission: Femoral Fracture Discharge Discharge Diagnosis / Problem: Right femoral neck fracture Discharge Goals Goal(s): Decrease discomfort, Improve function, Improve disease control Activity Recommendations Activity Limitations: resume your previous activity (weight-bear as tolerated right lower extremity with the assistance of a walker.) . Instructions / Follow-Up Instructions / Follow-Up Follow up with primary care provider Dr. Mcclelland (Dr. Kwon's colleague) on 10/15 @ 10:55 AM Follow up with ortho Dr. Thompson on 10/20/17 at 2:15 p.m. Check CBC on 10/11 (Wednesday) to monitor your hemoglobin Follow up ortho recommendation below Continue physical and occupational therapy with home health (counter caser will arrange that for you) Continue lovenox 40mg subq daily for Deep venous thrombosis prophylaxis Monitor for any signs of bleeding. If any bleeding develops, please notify your physician or seek medical attention If taking any narcotic, please do not drive or operate any machine after taking the narcotic due to risk of lethargy and drowsiness Fall precaution Current Hospital Diet Patient's current hospital diet: Regular Diet Discharge Diet Recommended Diet: Regular Diet Procedures Procedures Performed: Right Hip Percutaneous Screws Pending Studies Studies pending at discharge: no Laboratory Results Hemoglobin A1c Test 09/10/17 10:35 Range/Units Estimated Average Glucose 120 mg/dl Hemoglobin A1c 5.8 H 4.5-5.6 % Lipid Panel Test 09/10/17 10:35 Range/Units Triglycerides Level 53 0-150 mg/dl Cholesterol Level 184 0-200 mg/dl HDL Cholesterol 66 mg/dl Cholesterol/HDL Ratio 2.8 LDL Cholesterol, Calculated 107 mg/dl Medical Emergencies . Who to Call and When: Medical Emergencies: If at any time you feel your situation is an emergency, please call 911 immediately. . Non-Emergent Contact Non-Emergency issues call your: Primary Care Provider Call Non-Emergent contact if: temperature is above 101, your pain is not controlled, your pain is worsening, wound has increased drainage, wound has increased redness, wound has increased pain, you have any medication questions . . "Provider Documentation" section prepared by Kuldeep Alcantara. . Fish Warden Recommendations Fish Warden Recommendations: Out of bed, weight-bear as tolerated right lower extremity with the assistance of a walker. Ice and elevate right lower extremity as needed for pain and swelling. Encouraged ankle pumps, quad sets and gluteal sets as tolerated. Exercises as instructed by the physical therapist. Allowed for range of motion of all lower extremity joints. No hip precautions necessary. Lovenox 40 mg daily 14 days postoperatively for DVT prophylaxis. Paolo stockings for DVT prophylaxis. On during the day, off at night. Dressing changes to right hip daily and as needed. Keep incision covered. He may shower as of Tuesday, October 10, 2017. Pad incision dry. Do not scrub or soak incision. CBC on Wednesday, October 11, 2017. Prescription on chart. Call [phone] with any problems, questions or need to reschedule appointment. You have a follow up appointment with Dr. Thompson on 10/20/17 at 2:15 p.m. [place] Search Results: see additional documentation (unable to find on the [place] drug [place]) Additional Copies To Jannet Mcclelland,DO
== END 2017-10-09 14:46 | disposition home health service (06) | DRG 482 ==
LOC: C.EDB 16:00 → C.3E 20:38 → ENRESERV 21:17
PROVIDERS: ADMIT Internal Medicine; ATTEND Internal Medicine
PROC: 0QS634Z Reposition Right Upper Femur with Internal Fixation Device, Percutaneous Approach (ICD-10-PCS; principal; 2017-10-07 10:15)
DX: S72.011A Unspecified intracapsular fracture of right femur, initial encounter for closed fracture (principal); W01.0XXA Fall on same level from slipping, tripping and stumbling without subsequent striking against object, initial encounter; Y93.69 Activity, other involving other sports and athletics played as a team or group; Y92.318 Other athletic court as the place of occurrence of the external cause; R03.0 Elevated blood-pressure reading, without diagnosis of hypertension; D72.829 Elevated white blood cell count, unspecified; G20 Parkinson's disease; E03.9 Hypothyroidism, unspecified; Z79.899 Other long term (current) drug therapy

== ENCOUNTER → 2017-10-11 | Outpatient (CLI) | payer OTHER ==
[~2017-10-11] MED LIST changes: +HYDR-5688 PO; +LVNIS40 SQ; +ULT50X PO
[2017-10-11 14:55] LABS: HEMATOCRIT 38.1 % (37-47); HEMOGLOBIN 12.5 g/dL (12.0-16.0); MEAN CELL VOLUME 85.8 fL (80-100); MEAN CORPUSCULAR HEMOGLOBIN 28.2 pg (25-34); MEAN CORPUSCULAR HGB CONC 32.8 g/dl (32-36); MEAN PLATELET VOLUME 10.7 fL (7.4-10.4); PLATELET COUNT 293 K/uL (130-400); RED CELL DISTRIBUTION WIDTH CV 13.1 % (11.5-14.5); RED CELL DISTRIBUTION WIDTH SD 41.1 fL (36.4-46.3); WHITE BLOOD COUNT 5.98 K/uL (4.8-10.8)
== END | disposition home or self-care (01) ==
LOC: C.LAB 13:29
PROVIDERS: ATTEND Physical Medicine & Rehabilitation Sports Medicine
DX: Z98.890 Other specified postprocedural states (principal)